=== PATIENT | female | born 1945 | race African-American/Black ===

== ENCOUNTER 2017-03-25 16:42 | Inpatient (IN) | payer MEDICAID ==
[2017-03-25] MEDS ORDERED: MORPHINE SULFATE INJ 2 MG IVP ONE (16:51)
[2017-03-25] MEDS ORDERED: MORPHINE SULFATE INJ 2 MG ONE (16:54)
[2017-03-25 17:02] LABS: BASOPHILS # (AUTO) 0.1 X10^3/uL (0.0-0.1); BASOPHILS % (AUTO) 1.5 % (0.2-1.0); EOSINOPHILS # (AUTO) 0.5 x10^3/uL (0.0-0.2); EOSINOPHILS % (AUTO) 8.2 % (0.9-2.9); HEMATOCRIT 36.7 % (36.0-47.0); HEMOGLOBIN 11.9 g/dL (12.0-16.0); LYMPHOCYTES # (AUTO) 1.8 X10^3/uL (1.3-2.9); LYMPHOCYTES % (AUTO) 33.3 % (21.0-51.0); MEAN CORPUSCULAR HEMOGLOBIN 29.8 pg (27.0-34.0); MEAN CORPUSCULAR HGB CONC 32.4 g/dL (33.0-35.0); MEAN CORPUSCULAR VOLUME 91.8 fL (80.0-100.0); MEAN PLATELET VOLUME 10.1 fL (7.4-11.0); MONOCYTES # (AUTO) 0.2 x10^3/uL (0.3-0.8); MONOCYTES % (AUTO) 4.3 % (0.0-13.0); NEUTROPHILS # (AUTO) 2.9 x10^3/uL (2.2-4.8); NEUTROPHILS % (AUTO) 52.7 % (42.0-75.0); PLATELET COUNT 191 X10^3/uL (150.0-450.0); RED CELL DISTRIBUTION WIDTH 15.8 % (11.6-16.5); WHITE BLOOD COUNT 5.5 X10^3/uL (3.6-10.0)
[2017-03-25 17:18] LABS: CALCIUM 8.6 mg/dL (8.5-10.1); CARBON DIOXIDE 30.4 mmol/L (21-32); CREATININE 1.46 mg/dL (0.55-1.02); TROPONIN I 0.03 ng/mL (0-1.5)
[2017-03-25 17:22] LABS: COR CA(FOR HYPOALB) 9.4 mg/dL (8.5-10.1); TOTAL PROTEIN 7.7 g/dL (6.4-8.2)
[2017-03-25 17:25] LABS: CKMB % 1.3 % (<4); CREATINE KINASE MB 0.8 ng/mL (0-4.0)
[2017-03-25] MEDS ORDERED: PEPCID 20 MG IV PREMIX* 20 MG/50 ML BAG IV ONE ×2 (17:25→18:18)
--- NOTE | 2017-03-25 17:26 | DR.CP ---
HPI - Time Seen Time seen: 17:23 - PCP Primary Care Physician: yoan - HPI Comment HPI Comment: PATIENT ON TUBE FEEDING. SHE WAS GIVEN ORAL CHALLENGE TODAY. MOST OF THAT FEEDING WAS THROWN UP IN ED. - Complaint Chief Complaint Doctor Comments: PATIENT IS NOT ANSWERING QUESTION BUT SHE IS IN OBVIOUS PAIN. HISTORY PER NURSING NOTE. Chief Complaint:: patient was sitting in the [place] in her alecia chair getting her out patient fluids. patient started moaning and yelling and all of a sudden she projectile vomited very forceful. - Reviewed Nurses Notes Review: Yes - Source History Provided: Custodial - Mode of Arrival Mode of Arrival: Ambulatory - Timing Onset of Chief Complaint: 03/25/17 Came on: Suddenly Pain: Present Now - Duration Duration: Constant Duration: Minutes - Location Location of Chest Pain: Chest Chest Pain Radiation Location: None - Context Onset: At rest Cardiac Risk Factors: Family History, Hyperlipidemia, HTN, Diabetes PE Risk Factors: None History of: denies: Aspirin in last 24 hours Prehospital Care: Oxygen, IV, Monitor - Quality Quality: Other (AMS, PT NOT SAYING,) - Severity Severity: Moderate - Modifying Factors Worsens: Nothing Impoves: Nothing - Associated Signs and Symptoms Associated Signs and Symptoms: Shortness of Breath, Abdominal Pain, Nausea/ Vomiting, Other (CHEST PAIN) PMH - PMH Past Medical History: Yes Past Medical History: Anxiety, Coronary Artery Disease, CVA, Dementia, Diabetes , Dyslipidemia, GERD, Hypertension Past Surgical History: Yes Surgical History: Other Unable to Obtain Due To: Altered mental status - Family History History of Family Medical Conditions: Yes Family Medical History: Diabetes Mellitus, [place], Coronary Artery Disease, Hypertension - Social History Does patient currently use any type of tobacco product: No Have you used tobacco products in the last 12 months: No Type of Tobacco Use: None Does any household member use tobacco: No Alcohol Use: None Do you use any recreational Drugs:: No Lives With: Family Lives Where: Assisted Care - infectious screening In the last 2 months have you had wt loss of >10#?: NO Have you had fever, night sweats or hemotysis?: No Have you traveled outside the country in the last 6 months?: No Isolation: Standard ROS - Review of Systems Constitutional: Weakness. negative: Chills, Fever Eyes: negative: Eye Pain, Discharge ENTM: negative: Ear Pain, Nose Discharge, Nose Congestion, Throat Pain Respiratoy: Short of Breath, Wheezing Cardiovascular: Chest Pain. negative: Edema Gastrointestinal/Abdominal: Abdominal Pain, Nausea, Vomiting Genitourinary: No Symptoms Reported Neurological: Weakness Musculoskeletal: Muscle Pain Integumentary: No Symptoms Reported Hematologic/Lymphatic: Easy Bruising Endocrine: negative: Flushing, Increased Thirst, Increased Urine Unable to Obtain Due To: Altered mental status PE - Vitals Vitals: Temperature 98.6 F Pulse Rate [Apical] 80 Pulse Rate [Right Radial] 77 Pulse Rate 59 Respiratory Rate 16 Blood Pressure [Right Calf] 115/58 Blood Pressure [Right Arm] 129/60 Blood Pressure [Left Arm] 126/64 Blood Pressure 127/70 O2 Sat by Pulse Oximetry 100 - General Limitations: No Limitations General Appearance: Alert, In Distress - Head Head Exam: Normal Inspection - Eyes Eye exam: PERRL. negative: Scleral Icterus - ENT ENT Exam: Normal External Ear Exam - Chest Chest Inspection: Symmetric Chest Wall Rise - Respiratory Respiratory Exam: Respiratory Distress Respiratory Exam: Bilateral Wheezing, Bilateral Rhonchi, Upper Wheezing, Upper Rhonchi, Lower Wheezing, Lower Rhonchi - Cardiovascular Cardiovascular Exam: Regular Rate, Normal Rhythm, Normal Heart Sounds Pulse: Radial, Femoral - Abdominal Exam Abdominal Exam: Normal Bowel Sounds, Distention, Tenderness. negative: Guarding , Rebound, Rigidity Abdominal Tenderness: Diffuse, Moderate - Extremities Extremities Exam: Other (RT ELBOW CONTRACTURE.) - Back Back Exam: Paraspinal Tenderness - Neurologic Neurological Exam: Other (SLEEPY) - Psychiatric Psychiatric Exam: Flat Affect - Skin Skin Exam: Warm MDM - Additional Information Additional Information Obtained From: Family - Differential Diagnosis Differential Diagnosis: CHF, Gastritis, Myocardial Infarction, Pericarditis, Pleuritis, Pancreatitis Course - Treatment Treatment: SEE ORDERS. WHILE ED, PATIENT WAS SLEEPING SINCE 2MG MORPHINE. VOMITING IMPROVE WITH ZOFRAN. 2ND SETS OF CARDIAC ENZYMES WERE UNCHANGE AND SO WAS EKG. PATIENT BP STARTED DECREASING. SHE DID NOT REAPOND TO FLUID. LEVOPHED WAS STARTED AND PATIENT WAS ADMITTED TO HOSPITAL. - Reevaluation 1st: Unchanged 2nd: Unchanged 3rd: Worsened - Consultation Consultation Comments: PATIENT DISCUS WITH DR. KINCAID. TO DO 2ND SET OF CARDIAC ENZYME, IF NORMAL AND PATIENT FULLY ALERT, TO SEND HER TO THE RESIDENTIAL.. DISCUSS PATIENT WITH CODI PORTILLO AFTER BP DETERIORATED. HE WILL ADMIT PATIENT. - Education/Counseling Education/Counseling: Family Educated On: Treatment, Diagnosis ROR - Labs Reviewed Laboratory Results Reviewed?: Yes Result Diagrams: 03/26/17 07:18 03/26/17 07:18 Laboratory: WBC 28.7 X10^3/uL (3.6-10.0) H* 03/26/17 07:18 RBC 3.83 X10^6/uL (3.5-5.4) 03/26/17 07:18 Hgb 11.0 g/dL (12.0-16.0) L 03/26/17 07:18 Hct 34.9 % (36.0-47.0) L 03/26/17 07:18 MCV 91.0 fL (80.0-100.0) 03/26/17 07:18 MCH 28.7 pg (27.0-34.0) 03/26/17 07:18 MCHC 31.5 g/dL (33.0-35.0) L 03/26/17 07:18 RDW 16.0 % (11.6-16.5) 03/26/17 07:18 Plt Count 148 X10^3/uL (150.0-450.0) L 03/26/17 07:18 Plt Count Comment Adequate (ADEQUATE) 03/26/17 07:18 MPV 10.2 fL (7.4-11.0) 03/26/17 07:18 Neut % 87.5 % (42.0-75.0) H 03/26/17 07:18 Lymph % 1.6 % (21.0-51.0) L 03/26/17 07:18 Forest % 10.7 % (0.0-13.0) 03/26/17 07:18 Eos % 0.0 % (0.9-2.9) L 03/26/17 07:18 Baso % 0.2 % (0.2-1.0) 03/26/17 07:18 Neut # 25.2 x10^3/uL (2.2-4.8) H 03/26/17 07:18 Lymph # 0.4 X10^3/uL (1.3-2.9) L 03/26/17 07:18 Forest # 3.1 x10^3/uL (0.3-0.8) H 03/26/17 07:18 Eos # 0.0 x10^3/uL (0.0-0.2) 03/26/17 07:18 Baso # 0.1 X10^3/uL (0.0-0.1) 03/26/17 07:18 Absolute Nucleated RBC 0.1 /100WBC 03/26/17 07:18 Total Counted 100 03/26/17 07:18 Neutrophils % (Manual) 59 % (39-76) 03/26/17 07:18 Band Neutrophils % 18 % (0-10) H 03/26/17 07:18 Lymphocytes % (Manual) 9 % (13-43) L 03/26/17 07:18 Monocytes % (Manual) 8 % (4-9) 03/26/17 07:18 Metamyelocytes % 6 03/26/17 07:18 Plt Morphology Comment Normal (NORMAL) 03/26/17 07:18 RBC Morphology Normal (NORMAL) 03/26/17 07:18 INR Target Range - 03/26/17 07:18 INR 1.38 (0.8-1.3) H 03/26/17 07:18 PTT 39.4 SECONDS (22.9-36.5) H 03/26/17 07:18 PTT Comment - 03/26/17 07:18 Sample Site Rfem 03/25/17 22:54 ABG pH 7.310 (7.35-7.45) L 03/25/17 22:54 ABG pCO2 50.0 mmHg (35.0-45.0) H 03/25/17 22:54 ABG pO2 100.0 mmHg (80.0-100.0) 03/25/17 22:54 ABG HCO3 25.2 mmol/L (22-26) 03/25/17 22:54 ABG O2 Saturation 97.0 % (90-100) 03/25/17 22:54 ABG Base Excess -1.6 mmol/L (-2.0-2.0) 03/25/17 22:54 Richard Test N/a 03/25/17 22:54 A-a Gradient 37.0 mmHg 03/25/17 22:54 FiO2 28.000 03/25/17 22:54 Blood Gas Comments Leonila well ae 03/25/17 22:54 Sodium 140 mmol/L (136-145) 03/26/17 07:18 Corrected Sodium TNP 03/26/17 07:18 Potassium 4.4 mmol/L (3.5-5.1) 03/26/17 07:18 Chloride 104 mmol/L (98-107) 03/26/17 07:18 Carbon Dioxide 26.4 mmol/L (21-32) 03/26/17 07:18 BUN 84 mg/dL (7-18) H 03/26/17 07:18 Creatinine 2.27 mg/dL (0.55-1.02) H 03/26/17 07:18 Est GFR (MDRD) Af Amer 27 (>60) L 03/26/17 07:18 Est GFR (MDRD) Non-Af 22 (>60) L 03/26/17 07:18 Glucose 101 mg/dL (65-99) H 03/26/17 07:18 Lactic Acid 2.9 mmol/L (0.4-2.0) H 03/26/17 01:10 Calcium 8.7 mg/dL (8.5-10.1) 03/26/17 07:18 Corrected Calcium 9.8 mg/dL (8.5-10.1) 03/26/17 07:18 Magnesium 1.9 mg/dL (1.7-2.9) 03/26/17 07:18 Total Bilirubin 0.40 mg/dL (0.2-1.0) 03/26/17 07:18 AST 92 Units/L (15-37) H 03/26/17 07:18 ALT 123 Units/L (12-78) H 03/26/17 07:18 Alkaline Phosphatase 108 Units/L (46-116) 03/26/17 07:18 Creatine Kinase 304 Units/L (26-192) H 03/26/17 07:18 CK-MB (CK-2) 4.0 ng/mL (0-4.0) 03/26/17 07:18 CK/CKMB % Calc 1.3 % (<4) 03/26/17 07:18 Troponin I 0.08 ng/mL (0-1.5) 03/26/17 07:18 B-Natriuretic Peptide 718 pg/mL (0-79) H* 03/25/17 16:30 Total Protein 7.1 g/dL (6.4-8.2) 03/26/17 07:18 Albumin 2.6 g/dL (3.4-5.0) L 03/26/17 07:18 Globulin 4.5 g/dL (2.5-4.5) 03/26/17 07:18 Albumin/Globulin Ratio 0.6 Ratio (1.1-2.1) L 03/26/17 07:18 Triglycerides 94 mg/dL (0-150) 03/26/17 07:18 Cholesterol 82 mg/dL (0-200) 03/26/17 07:18 LDL Cholesterol, Calc 15 mg/dL (0-100) 03/26/17 07:18 HDL Cholesterol 48 mg/dL (40-60) 03/26/17 07:18 Cholesterol/HDL Ratio 1.7 (0.0-5.0) 03/26/17 07:18 Amylase 135 Units/L (25-115) H 03/25/17 16:30 Lipase 510 Units/L (73-393) H 03/25/17 16:30 Specimen Type Catherized urine 03/25/17 23:12 Urine Color Yellow (YELLOW) 03/25/17 23:12 Urine Appearance Clear (CLEAR) 03/25/17 23:12 Urine pH 6.5 (5.0 - 8.0) 03/25/17 23:12 Ur Specific Kidder 1.010 (1.000-1.030) 03/25/17 23:12 Urine Protein 3+ (NEGATIVE) 03/25/17 23:12 Urine Glucose (UA) Negative (NEGATIVE) 03/25/17 23:12 Urine Ketones Negative (NEGATIVE) 03/25/17 23:12 Urine Occult Blood Negative (NEGATIVE) 03/25/17 23:12 Urine Nitrite Negative (NEGATIVE) 03/25/17 23:12 Urine Bilirubin Negative (NEGATIVE) 03/25/17 23:12 Urine Urobilinogen Normal (NORMAL) 03/25/17 23:12 Ur Leukocyte Esterase 1+ (NEGATIVE) 03/25/17 23:12 Urine RBC None seen /HPF (NEGATIVE) 03/25/17 23:12 Urine WBC 6-8 /HPF (NEGATIVE) 03/25/17 23:12 Ur Squamous Epith Cells Rare /HPF (NEGATIVE) 03/25/17 23:12 Urine Bacteria 1+ /HPF (NEGATIVE) 03/25/17 23:12 Ur Culture Indicated? Yes/culture set up 03/25/17 23:12 - XRAY XRAY Findings: REPORT NOTED. DISCUSS WITH FAMILY. - EKG Rhythm: NSR (EKG NOTED) - Diagnosis Discharge Problem: Mental status alteration, Abdominal pain, Chest pain, Hypotension, UTI ( urinary tract infection) - Discharge Plan Disposition: 09 ADMITTED INPATIENT Condition: Stable - Follow ups/Referrals - Instructions
--- NOTE | 2017-03-25 18:49 | CT ---
Indication: Pain and vomiting . Exam: CT chest, abdomen, and pelvis without contrast. Technique: Axial spiral images were obtained from lung bases through the pubic symphysis without con trast and reconstructed at 5 mm intervals with coronal and sagittal multiplanar reconstructions. Aut omated dose control was used during the exam. Findings: CT chest: There is a small right pleural effusion along the lung base extending superiorly into the upper chest. The thyroid gland is unremarkable. There is a right Port-A-Cath in place the tip in the distal superior vena cava. There is a left pacemaker in place with the pacing wires in go od position. The aorta and pulmonary arteries are normal caliber. There is no mediastinal mass or ad enopathy. There is volume loss and consolidation along the right lower lobe posteriorly. There is a 4 mm noncalcified nodule along the right lower lobe laterally. There are mild linear densities along the right middle lobe anteriorly . There is motion artifact throughout the exam. Moderate degenerat omar changes are seen throughout the spine. CT of the abdomen and pelvis: The liver and spleen are normal size and density. No focal lesion is s een. The gallbladder has been removed with clips in the gallbladder fossa. There is a gastrostomy tu be along the midline of the upper epigastric region extending into the body of the stomach which octavio ears in good position. The pancreas and adrenals are normal . The bile ducts are normal caliber. The re is cortical scarring and parenchymal thinning throughout both kidneys with no renal stones and no urinary obstruction. There is moderate feces throughout the colon which is most prominent along the rectosigmoid region. There is no bowel obstruction. The bladder is unremarkable and the uterus is a trophic with no adnexal mass or free fluid. The appendix is normal. There is no pericecal inflammati on. There is a mild compression fracture along the superior endplate of L1 with no displaced or retr opulsed fragments. There is moderate degenerative disc space narrowing . Impression: Small right pleural effusion with associated right basilar atelectasis and or infiltrate 4 mm nodule right lung base laterally, recommend short-term followup to assure stability . Right Port-A-Cath and left pacemaker in good position with no mediastinal mass or adenopathy. Gastrostomy tube in good position. Status post cholecystectomy with no acute intra-abdominal abnormality seen. Diffuse constipation and moderate fecal impaction along the rectosigmoid region with no definite bow el obstruction. Perirenal scarring around both kidneys with no hydronephrosis or urinary obstruction . Mild compression fracture of L1 which appears chronic , recommend clinical followup. Reported By:
[2017-03-25 21:35] LABS: CKMB % 2.5 % (<4); CREATINE KINASE MB 1.7 ng/mL (0-4.0); TROPONIN I 0.03 ng/mL (0-1.5)
[2017-03-25] MEDS ORDERED: NS 1000 ML 1,000 ML IV ONE (21:59)
[2017-03-25] MEDS ORDERED: NS 1000 ML 1,000 ML ONE (21:59)
[2017-03-25] MEDS ORDERED: D5W 250 ML IV 250 ML IV ONE (22:48)
[2017-03-25] MEDS ORDERED: LEVOPHED INJ ONE (22:49)
[2017-03-25 22:58] LABS: BLOOD UREA NITROGEN 79 mg/dL (7-18); CALCIUM 8.7 mg/dL (8.5-10.1); CARBON DIOXIDE 24.9 mmol/L (21-32); CHLORIDE 106 mmol/L (98-107); CREATININE 1.84 mg/dL (0.55-1.02); GLUCOSE 108 mg/dL (65-99); SODIUM 141 mmol/L (136-145); eGFR BLACK RACES 35 (>60); eGFR NON BLACK RACES 29 (>60)
[2017-03-25 22:59] LABS: ABG BASE EXCESS -1.6 mmol/L (-2.0-2.0); ABG HCO3 25.2 mmol/L (22-26)
[2017-03-25] MEDS: LEVOPHED INJ 8 MG in D5W 250 ML IV 242 ML IV PRN (23:05)
[2017-03-25 23:48] LABS: BILIRUBIN,URINE NEGATIVE (NEGATIVE); BLOOD/HEMOGLOBIN,URINE NEGATIVE (NEGATIVE); GLUCOSE, URINE NEGATIVE (NEGATIVE); KETONES,URINE NEGATIVE (NEGATIVE); LEUKOCYTE ESTERASE ,URINE 1+ (NEGATIVE); NITRITES,URINE NEGATIVE (NEGATIVE); PH,URINE 6.5 (5.0 - 8.0); PROTEIN,URINE 3+ (NEGATIVE); UROBILINOGEN,URINE NORMAL (NORMAL)
[2017-03-26 00:05] LABS: APPEARANCE,URINE CLEAR (CLEAR); BACTERIA,URINE 1+ /HPF (NEGATIVE); COLOR,URINE YELLOW (YELLOW); RBC,URINE NONE SEEN /HPF (NEGATIVE); SQUAMOUS EPITHELIAL CELL,UR RARE /HPF (NEGATIVE)
--- NOTE | 2017-03-26 00:27 | CT ---
CT head without contrast Indication: Projectile vomiting and altered mental status. Technique: Axial images from the skullbase to the vertex without contrast. Coronal and sagittal refo rmats provided. Comparison: September 05, [address] Findings: There is atrophy and microangiopathy with ex vacuo ventricle and sulcal enlargement, simil ar to the prior. No new acute intracranial hemorrhage, mass or mass effect seen. No extra-axial flui d collection identified. Review of bone windows shows no osseous abnormality. Paranasal sinuses and mastoid air cells are clear. Empty sella type appearance noted. This is unchanged over multiple priors. Old left basal ganglia in farct unchanged. Impression: 1. No acute intracranial hemorrhage. 2. Atrophy, with ex vacuo ventricle sulcal enlargement. Empty sella appearance seen. Intracranial hy pertension not excluded. Reported By:
[2017-03-26] MEDS ORDERED: NS 50 ML IV + SPIKE MINIBAG* 50 ML IV ONE (01:11)
[2017-03-26] MEDS ORDERED: ROCEPHIN VIAL 1 GM ONE (01:12)
[2017-03-26] MEDS: NS 1000 ML 1,000 ML IV SCH ×3 (02:02→21:10)
[2017-03-26] MEDS: ROCEPHIN VIAL 1 GM 1 GM in NS 50 ML IV + SPIKE MINIBAG* 50 ML IV SCH ×2 (02:02→09:21)
[2017-03-26 07:35] LABS: BASOPHILS # (AUTO) 0.1 X10^3/uL (0.0-0.1); BASOPHILS % (AUTO) 0.2 % (0.2-1.0); HEMATOCRIT 34.9 % (36.0-47.0); LYMPHOCYTES # (AUTO) 0.4 X10^3/uL (1.3-2.9); LYMPHOCYTES % (AUTO) 1.6 % (21.0-51.0); MEAN CORPUSCULAR HEMOGLOBIN 28.7 pg (27.0-34.0); MEAN CORPUSCULAR HGB CONC 31.5 g/dL (33.0-35.0); MEAN PLATELET VOLUME 10.2 fL (7.4-11.0); MONOCYTES # (AUTO) 3.1 x10^3/uL (0.3-0.8); MONOCYTES % (AUTO) 10.7 % (0.0-13.0); NEUTROPHILS # (AUTO) 25.2 x10^3/uL (2.2-4.8); NEUTROPHILS % (AUTO) 87.5 % (42.0-75.0); PLATELET COUNT 148 X10^3/uL (150.0-450.0); RED BLOOD COUNT 3.83 X10^6/uL (3.5-5.4)
[2017-03-26 07:43] LABS: WHITE BLOOD COUNT 28.7 X10^3/uL (3.6-10.0)
[2017-03-26 07:48] LABS: BAND NEUTROPHILS % 18 % (0-10); METAMYELOCYTES % 6; PLATELET MORPHOLOGY COMMENT NORMAL (NORMAL)
[2017-03-26 07:53] LABS: ALANINE AMINOTRANSFERASE 123 Units/L (12-78); ALBUMIN 2.6 g/dL (3.4-5.0); ALKALINE PHOSPHATASE 108 Units/L (46-116); ASPARTATE AMINO TRANSFERASE 92 Units/L (15-37); BLOOD UREA NITROGEN 84 mg/dL (7-18); CALCIUM 8.7 mg/dL (8.5-10.1); CARBON DIOXIDE 26.4 mmol/L (21-32); CHLORIDE 104 mmol/L (98-107); CHOL/HDL RATIO 1.7 (0.0-5.0); CHOLESTEROL 82 mg/dL (0-200); CKMB % 1.3 % (<4); COR CA(FOR HYPOALB) 9.8 mg/dL (8.5-10.1); CREATINE KINASE 304 Units/L (26-192); CREATININE 2.27 mg/dL (0.55-1.02); GLUCOSE 101 mg/dL (65-99); HDL CHOLESTEROL 48 mg/dL (40-60); MAGNESIUM 1.9 mg/dL (1.7-2.9); SODIUM 140 mmol/L (136-145); TOTAL PROTEIN 7.1 g/dL (6.4-8.2); TRIGLYCERIDES 94 mg/dL (0-150); TROPONIN I 0.08 ng/mL (0-1.5); eGFR BLACK RACES 27 (>60); eGFR NON BLACK RACES 22 (>60)
[2017-03-26] MEDS: LEVOPHED INJ 8 MG in D5W 250 ML IV 242 ML IV PRN ×2 (09:20→20:16)
[2017-03-26] MEDS ORDERED: CONSULT PHARMACY - ANTIBIOTIC XX SCH (11:00)
[2017-03-26 11:56] LABS: CKMB % 1.3 % (<4); CREATINE KINASE MB 4.8 ng/mL (0-4.0); TROPONIN I 0.09 ng/mL (0-1.5)
--- NOTE | 2017-03-26 11:57 | DR.H&P ---
H&P - History & Physical for Day of: H&P Date: 03/26/17 - Chief Complaint Chief Complaint: VOMITING, HYPOTENSION - Allergies Allergies/Adverse Reactions: Allergies Allergy/AdvReac Type Severity Reaction Status Date / Time Tuberculin Tests Allergy Verified 06/28/16 07:14 - History of Present Illness History of Present Illness: THIS IS A 72 YEAR OLD FEMALE, WHO IS A PATIENT OF OURS. SHE RESIDES AT [facility]. SHE PRESENTS TO THE EMERGENCY ROOM TODAY FOR OUTPATIENT IV FLUIDS THAT SHE RECIEVES THREE TIMES PER WEEK DUE TO CHRONIC RENAL FAILURE, DEHYDRATION, AND HYPERNATREMIA. WHILE IN THE EMERGENCY ROOM, PATIENT HAD PROJECTILE VOMITING ALONG WITH CHEST PAIN AND ABDOMINAL PAIN. PATIENT'S PRIMARY SOURCE OF NUTRITION IS VIA PEG FEEDINGS. PATIENT WAS GIVEN AN ORAL CHALLENGE PRIOR TO ER VISIT AND DID NOT TOLERATE WELL. PATIENT IS NOT ABLE TO VERBALIZE NEEDS; HOWEVER, MOANS IN PAIN. SHE IS NOTED WITH SHORTNESS OF BREATH WITH RESPIRATORY DISTRESS. ON AUSCULTATION, LUNGS ARE NOTED WITH BILATERAL WHEEZING AND RHONCHI THROUGHOUT. LABS, CT'S OBTAINED IN ER. CBC WNL EXCEPT: HGB 11.9. CMP WNL EXCEPT: BUN/CREAT 70/1.46, GFR 37, GLUCOSE 129, AST 78, ALT 120, ALK PHOS 189, ALBUMIN 3.0. BNP 718. LACTIC ACID 2.9. CARDIAC ENZYMES WNL. EKG: JUNCTIONAL RHYTHM, RATE 55. CT OF ABD/PELVIS REPORTS GASTROSTOMY TUBE IN GOOD POSITION; STATUS POST CHOLECYSTECTOMY WITH NO ACUTE INTRA-ABDOMINAL ABNORMALITY; DIFFUSE CONSTIPATION AND MODERATE FECAL IMPACTION ALONG THE RECTOSIGMOID REGION WITH NO DEFINITE BOWEL OBSTRUCTION; PERIRENAL SCARRING AROUND BOTH KIDNEYS WITH NO HYDRONEPHROSIS OR URINARY OBSTRUCTION; MILD COMPRESSION FRACTURE OF L1 WHICH APPEARS CHRONIC. CT OF CHEST REPORTS: SMALL RIGHT PLEURAL EFFUSION WITH ASSOCIATED RIGHT BASILAR ATELECTASIS AND OR INFILTRATE; 4 MM NODULE RIGHT LUNG BASE LATERALLY. PATIENT RECEIVED MORPHINE 2MG IV, WITH DECREASED MOANING IN RESPONSE TO PAIN. HYPOTENSION WAS THEN NOTED AND AN ATTEMPT WAS MADE TO CORRECT WITH IV FLUIDS WITH NO IMPROVEMENT. BLOOD PRESSURE WAS 78/50, PULSE 65. A LEVOPHED DRIP WAS STARTED AND BLOOD PRESSURE IMPROVED TO 110/69, PULSE 75. BRAIN CT REPORTS NO ACUTE INTRACRANIAL HEMORRHAGE; ATROPHY WITH EX VACUO VENTRICLE SULCAL ENLARGEMENT; EMPTY SELLA. BLOOD AND URINE CULTURES OBTAINED. PATIENT WAS ADMITTED TO ICU FOR FURTHER TREATMENT. SHE CONTINUES ON LEVOPHED DRIP THIS MORNING AND BLOOD PRESSURE IS 109/47, PULSE 66. SHE IS ON NASAL CANNULA WITH NO RESPIRATORY DISTRESS OR MOANING. O2 SATURATION IS 100%. WBC IS 28.7 THIS MORNING. WE WILL DISCONTINUE ROCEPHIN AND START FORTAZ AND VANCOMYCIN IV. WE WILL OBTAIN SPUTUM CULTURE AND CONTINUE TO MONITOR. WE WILL FOLLOW UP IN AM WITH LABS AND CHEST XRAY. - Past Medical History Past Medical History: Anxiety, Coronary Artery Disease, CVA, Dementia, Diabetes , Dyslipidemia, GERD, Hypertension Additional Medical History: Glaucoma, Constipation, Urinary Tract Infections, Muscle Weakness, Constipation, frequent UTI's - Past Surgical History Surgical History: Other Additional Surgical History: Pacemaker/defibrillator left chest wall, Portacath right chest wall, Peg Tube - Family History Family Medical History: Diabetes Mellitus, [place], Coronary Artery Disease, Hypertension - Social History Does patient currently use any type of tobacco product: No Have you used tobacco products in the last 12 months: No Type of Tobacco Use: None Does any household member use tobacco: No Alcohol Use: None Drug Use: None - Medications Home Medications: Artificial Tears (Ophth) [ARTIFICIAL TEARS (ophth) drops *] 1 drop EACHEYE BID 05/30/16 Atorvastatin Calcium [Lipitor] 1 tab PEG DAILY 05/30/16 Brimonidine Tartrate [ALPHAGAN P 0.15% (ophth) Soln *] 1 drop LEFTEYE TID 05/10 Citalopram 20 mg Tab [CELEXA 20 MG *] 1 tab PEG DAILY 05/30/16 Dorzolamide HCl-Timolol Maleat [Cosopt 22.3-6.8 mg/ml] 1 drop LEFTEYE BID 05/10 Gabapentin [NEURONTIN CAP 400 MG *] 2 tab PEG DAILY 05/30/16 Latanoprost 0.005 % (Ophth) [XALATAN (OPHTH) DROPS 0.005 % *] 1 drop LEFTEYE HS 05/30/16 Clopidogrel Bisulfate [PLAVIX TAB 75 MG *] 1 tab PEG DAILY 06/28/16 Allopurinol [ZYLOPRIM tab 100 mg *] 1 tab PEG DAILY 07/26/16 Famotidine [PEPCID TAB 20 MG *] 20 mg PEG BID 03/26/17 - Review of Systems Constitutional: Weakness Eyes: No Symptoms Reported. denies: Pain, Vision Change, Conjunctivae Inflammation, Eyelid Inflammation, Redness ENT: No Symptoms Reported. denies: Ear Pain, Ear Discharge, Nose Pain, Nose Discharge, Nose Congestion, Mouth Pain, Mouth Swelling, Throat Pain, Throat Swelling Respiratory: Shortness of Breath, SOB with Excertion, Wheezing Cardiovascular: Chest Pain. denies: Palpitations, Orthopnea, Paroxysmal Noc. Dyspnea, Edema, Light Headedness Gastrointestinal: Nausea, Vomiting, Abdominal Pain. denies: Diarrhea, Constipation, Melena, Hematochezia Genitourinary: Frequency, Incontinence. denies: Hematuria Musculoskeletal: Other (Generalized Muscle Pain) Skin: No Symptoms Reported. denies: Rash, Lesions, Jaundice, Bruising, Wound, Ecchymosis Neurological: No Symptoms Reported - Physical Exam Vital Signs: Temperature 98.2 F Pulse Rate [Apical] 66 Respiratory Rate 18 Blood Pressure [Right Arm] 109/47 O2 Sat by Pulse Oximetry 100 Oriented: Unable to test (Aphasic Due to Prior CVA) Eyes: Normal. negative: Discharge, Pain, Redness, Photophobia Ear: Normal. negative: Swelling, Ecchymosis, Hemotypanum, Abrasion, Laceration Nose: Normal. negative: Injected, Discharge, Blood Throat: Dry. negative: Tonsillar Hypertrophy, Exudate Respiratory: Rhonchi Throughout, Wheezes Throughout Cardiovascular: Normal. negative: Murmur, Edema : Frequency, Discharge. negative: Hematuria, Bleeding, Auscultation: Bowel Sounds: Decreased. negative: Bruit Palpation: Normal. negative: Spleen Enlarged, Liver Enlarged, Mass Pulsatile Tenderness: Diffuse, Severe. negative: Rebound, Guarding, Rigidity Skin: Decreased Turgur. negative: Diaphoresis, Wound, Bruising, Ecchymosis Musculoskeletal: Instability (Non-ambulatory) Mood Description: Calm, Withdrawn Speech Pattern: Aphasic - Assessment/Plan (1) Hypotension Qualifiers: Hypotension type: other hypotension type Trimester: T Qualified Code(s): I95.89 - Other hypotension Status: Acute Plan: ADMIT PATIENT TO ICU, CONTINUE LEVOPHED DRIP, MONITOR ON TELEMETRY, SERIAL CARDIAC ENZYMES AND EKG'S, MONITOR VITAL SIGNS, SUPPLEMENTAL OXYGEN, MONITOR BLOOD PRESSURE EVERY HOUR. (2) Septicemia Status: Suspected Plan: START VANCOMYCIN IV, FORTAZ IV, IV FLUIDS, MONITOR VITAL SIGNS, AWAIT BLOOD CULTURE C&S. (3) Pneumonia Qualifiers: Pneumonia type: due to unspecified organism Aspiration pneumonia type: A Laterality: right Lung location: lower lobe of lung Qualified Code(s): J18.1 - Lobar pneumonia, unspecified organism Status: Acute Plan: START PNEUMONIA PROTOCOL: IV VANCOMYCIN, IV FORTAZ, AGGRESSIVE NEB TREATMENTS, INCENTIVE SPIROMETER, SUPPLEMENTAL OXYGEN, ROBITUSSIN, MONITOR LABS AND CHEST XRAY. (4) Chest pain Qualifiers: Chest pain type: precordial pain Ischemic chest pain type: I Qualified Code(s): R07.2 - Precordial pain Status: Acute Plan: CONTINUE LEVOPHED DRIP, MONITOR ON TELEMETRY, SERIAL CARDIAC ENZYMES AND EKG'S, MONITOR VITAL SIGNS, SUPPLEMENTAL OXYGEN. (5) Abdominal pain Qualifiers: Abdominal location: generalized Qualified Code(s): R10.84 - Generalized abdominal pain Status: Acute Plan: START IV FLUIDS, PEPCID, PROTONIX, MONITOR. (6) Mental status alteration Qualifiers: Altered mental status type: disorientation Coma depth: C Coma timing: C Qualified Code(s): R41.0 - Disorientation, unspecified Status: Acute Plan: CONTINUE TO MONITOR. (7) UTI (urinary tract infection) Qualifiers: Urinary tract infection type: acute cystitis Hematuria presence: without hematuria Indwelling urinary catheter type: I Encounter type: E Qualified Code(s): N30.00 - Acute cystitis without hematuria Status: Acute Plan: START FORTAZ, AWAIT URINE CULTURE, MONITOR. (8) CAD (coronary artery disease) Qualifiers: Coronary Disease-Associated Artery/Lesion type: [place] artery [place] vs. transplanted heart: [place] heart Associated angina: without angina Qualified Code(s): I25.10 - Atherosclerotic heart disease of [place] coronary artery without angina pectoris Status: Chronic (9) CHF (congestive heart failure) Qualifiers: Congestive heart failure type: C Congestive heart failure chronicity: acute on chronic Status: Chronic (10) Chronic renal failure Qualifiers: Chronic kidney disease stage: stage 4 (severe) Qualified Code(s): N18.4 - Chronic kidney disease, stage 4 (severe) Status: Chronic (11) Constipation by delayed colonic transit Status: Chronic (12) Dementia Qualifiers: Dementia type: vascular dementia Alzheimer's disease onset: A Dementia behavioral disturbance: without behavioral disturbance Qualified Code(s): F01.50 - Vascular dementia without behavioral disturbance Status: Chronic (13) Depression Qualifiers: Depression Type: major depressive disorder Major depression recurrence: recurrent Active/Remission status: currently active Major depression episode severity: moderate Psychotic features: P Trimester: T Qualified Code(s): F33.1 - Major depressive disorder, recurrent, moderate Status: Chronic (14) Diabetes mellitus, type 2 Qualifiers: Diabetes mellitus complication status: with kidney complications Diabetes mellitus complication detail: with chronic kidney disease Diabetic retinopathy severity: D Proliferative retinopathy type: P Diabetes mellitus macular edema: D Diabetes mellitus care home insulin use: with applications support lead use Laterality: L Chronic kidney disease stage: stage 4 (severe) Qualified Code(s): E11.22 - Type 2 diabetes mellitus with diabetic chronic kidney disease Status: Chronic (15) Dysphagia as late effect of cerebrovascular accident (CVA) Status: Chronic (16) Essential hypertension Status: Chronic (17) GERD (gastroesophageal reflux disease) Qualifiers: Esophagitis presence: esophagitis presence not specified Qualified Code(s) : K21.9 - Gastro-esophageal reflux disease without esophagitis Status: Chronic (18) History of CVA (cerebrovascular accident) Status: Chronic (19) Hyperlipidemia Qualifiers: Hyperlipidemia type: mixed hyperlipidemia Qualified Code(s): E78.2 - Mixed hyperlipidemia Status: Chronic (20) Pacemaker Status: Chronic (21) S/P percutaneous endoscopic gastrostomy (PEG) tube placement Status: Acute
[2017-03-26] MEDS: FORTAZ or TAZICEF INJ 1 GM in NS 50 ML IV + SPIKE MINIBAG* 50 ML IV SCH (12:07)
[2017-03-26] MEDS: VANCOMYCIN 1 GM PREMIX (ADDVANTAGE) 250 ML IV SCH (12:53)
[2017-03-26] MEDS: ROBITUSSIN DM PEG SCH ×3 (13:00→21:07)
[2017-03-26] MEDS: PROTONIX INJ 40 MG VIAL IVP SCH (13:01)
[2017-03-26] MEDS: PLAVIX PEG SCH (13:01)
[2017-03-26] MEDS: CELEXA PEG SCH (13:01)
[2017-03-26] MEDS: PEPCID 20 MG IV PREMIX* 20 MG/50 ML BAG IV SCH ×2 (13:04→21:08)
[2017-03-26] MEDS: LIPITOR TAB 20 MG PEG SCH (13:04)
[2017-03-26 15:31] LABS: BASOPHILS # (AUTO) 0.1 X10^3/uL (0.0-0.1); BASOPHILS % (AUTO) 0.4 % (0.2-1.0); EOSINOPHILS # (AUTO) 5.4 x10^3/uL (0.0-0.2); EOSINOPHILS % (AUTO) 15.7 % (0.9-2.9); HEMATOCRIT 31.9 % (36.0-47.0); LYMPHOCYTES % (AUTO) 2.9 % (21.0-51.0); MEAN CORPUSCULAR HEMOGLOBIN 28.9 pg (27.0-34.0); MEAN CORPUSCULAR HGB CONC 31.2 g/dL (33.0-35.0); MEAN CORPUSCULAR VOLUME 92.5 fL (80.0-100.0); MEAN PLATELET VOLUME 10.2 fL (7.4-11.0); MONOCYTES # (AUTO) 2.9 x10^3/uL (0.3-0.8); MONOCYTES % (AUTO) 8.6 % (0.0-13.0); NEUTROPHILS # (AUTO) 24.8 x10^3/uL (2.2-4.8); NEUTROPHILS % (AUTO) 72.4 % (42.0-75.0); PLATELET COUNT 123 X10^3/uL (150.0-450.0); RED BLOOD COUNT 3.45 X10^6/uL (3.5-5.4); RED CELL DISTRIBUTION WIDTH 16.2 % (11.6-16.5)
[2017-03-26 15:36] LABS: WHITE BLOOD COUNT 34.3 X10^3/uL (3.6-10.0)
[2017-03-26 15:58] LABS: PLATELET MORPHOLOGY COMMENT NORMAL (NORMAL)
[2017-03-26] MEDS: ALPHAGAN P 0.15% OPHTH SOLN LEFTEYE SCH ×2 (16:00→21:08)
[2017-03-26] MEDS: DUONEB 0.5 MG/3 MG NEB SCH ×2 (17:19→20:50)
[2017-03-26] MEDS: ARTIFICIAL TEARS DROPS EACHEYE SCH (21:21)
[2017-03-26] MEDS: COSOPT OPTH LEFTEYE SCH (21:21)
[2017-03-26] MEDS: XALATAN LEFTEYE SCH (21:25)
[2017-03-27] MEDS: DUONEB 0.5 MG/3 MG NEB SCH ×6 (01:27→20:41)
[2017-03-27] MEDS: NS 1000 ML 1,000 ML IV SCH ×3 (03:47→23:42)
[2017-03-27 05:33] LABS: ALANINE AMINOTRANSFERASE 90 Units/L (12-78); ALBUMIN 2.3 g/dL (3.4-5.0); ALKALINE PHOSPHATASE 97 Units/L (46-116); ASPARTATE AMINO TRANSFERASE 70 Units/L (15-37); BLOOD UREA NITROGEN 86 mg/dL (7-18); CALCIUM 8.1 mg/dL (8.5-10.1); CHLORIDE 105 mmol/L (98-107); COR CA(FOR HYPOALB) 9.5 mg/dL (8.5-10.1); CREATININE 2.75 mg/dL (0.55-1.02); GLUCOSE 102 mg/dL (65-99); SODIUM 140 mmol/L (136-145); TOTAL PROTEIN 6.8 g/dL (6.4-8.2); eGFR BLACK RACES 22 (>60); eGFR NON BLACK RACES 18 (>60)
[2017-03-27 06:14] LABS: BASOPHILS # (AUTO) 0.1 X10^3/uL (0.0-0.1); MEAN CORPUSCULAR HEMOGLOBIN 29.5 pg (27.0-34.0); MEAN CORPUSCULAR HGB CONC 31.5 g/dL (33.0-35.0); MONOCYTES # (AUTO) 3.1 x10^3/uL (0.3-0.8)
[2017-03-27 06:22] LABS: BASOPHILS % (AUTO) 0.3 % (0.2-1.0); EOSINOPHILS # (AUTO) 2.8 x10^3/uL (0.0-0.2); EOSINOPHILS % (AUTO) 10.4 % (0.9-2.9); HEMATOCRIT 30.1 % (36.0-47.0); HEMOGLOBIN 9.5 g/dL (12.0-16.0); LYMPHOCYTES # (AUTO) 1.4 X10^3/uL (1.3-2.9); LYMPHOCYTES % (AUTO) 5.3 % (21.0-51.0); MEAN CORPUSCULAR VOLUME 93.4 fL (80.0-100.0); MEAN PLATELET VOLUME 10.4 fL (7.4-11.0); MONOCYTES % (AUTO) 11.7 % (0.0-13.0); NEUTROPHILS # (AUTO) 19.5 x10^3/uL (2.2-4.8); NEUTROPHILS % (AUTO) 72.3 % (42.0-75.0); PLATELET COUNT 121 X10^3/uL (150.0-450.0); RED BLOOD COUNT 3.22 X10^6/uL (3.5-5.4); RED CELL DISTRIBUTION WIDTH 15.9 % (11.6-16.5)
[2017-03-27] MEDS: ALPHAGAN P 0.15% OPHTH SOLN LEFTEYE SCH ×3 (06:24→22:00)
[2017-03-27 06:27] LABS: WHITE BLOOD COUNT 26.9 X10^3/uL (3.6-10.0)
[2017-03-27 06:58] LABS: BAND NEUTROPHILS % 18 % (0-10); METAMYELOCYTES % 5; PLATELET MORPHOLOGY COMMENT NORMAL (NORMAL)
--- NOTE | 2017-03-27 07:14 | RAD ---
AP Chest Indication: Hypotension, chest pain Comparison: 09/28/2016 Findings: Stable positioning of right chest wall MediPort and left chest wall pacemaker. The trachea is midline. The cardiac silhouette is borderline enlarged. The lungs are clear without focal infiltrate or effusion. The bony thorax is unremarkable. IMPRESSION: 1. Borderline cardiomegaly without acute airspace disease or CHF. Reported By:
[2017-03-27] MEDS: LEVOPHED INJ 8 MG in D5W 250 ML IV 242 ML IV PRN ×2 (07:36→22:00)
[2017-03-27] MEDS: ALBUMIN HUMAN 25%- 100ML 100 ML IV SCH (09:48)
[2017-03-27] MEDS: ROBITUSSIN DM PEG SCH ×4 (09:49→22:00)
[2017-03-27] MEDS: PEPCID 20 MG IV PREMIX* 20 MG/50 ML BAG IV SCH (09:49)
[2017-03-27] MEDS: VANCOMYCIN 1 GM PREMIX (ADDVANTAGE) 250 ML IV SCH (09:49)
[2017-03-27] MEDS: FORTAZ or TAZICEF INJ 1 GM in NS 50 ML IV + SPIKE MINIBAG* 50 ML IV SCH (09:49)
[2017-03-27] MEDS: ARTIFICIAL TEARS DROPS EACHEYE SCH ×2 (09:50→22:00)
[2017-03-27] MEDS: PLAVIX PEG SCH (09:50)
[2017-03-27] MEDS: LIPITOR TAB 20 MG PEG SCH (09:50)
[2017-03-27] MEDS: CELEXA PEG SCH (09:50)
[2017-03-27] MEDS: PROTONIX INJ 40 MG VIAL IVP SCH (09:50)
[2017-03-27] MEDS: COSOPT OPTH LEFTEYE SCH ×2 (09:51→22:00)
--- NOTE | 2017-03-27 15:28 | PCM.PROG ---
Progress Note - Progress Note for Day of Date: 03/27/17 - Subjective Subjective: PATIENT IS MORE RESPONSIVE THIS MORNING. PATIENT IS AWAKE AND ALERT UPON ROUNDS. PATIENT CONTINUES ON PNEUMONIA PROTOCOL WITH IV ANTIBIOTICS AND AGGRESSIVE NEB TREATMENTS. PATIENT WAS PLACED ON A LEVOPHED DRIP YESTERDAY DUE TO HYPOTENSION. BLOOD PRESSURE THIS MORNING IS 120/48, PULSE 73. ON AUSCULTATION, LUNGS ARE NOTED WITH SCATTERED WHEEZING THROUGHOUT. CBC WNL EXCEPT: WBC IMPROVED FROM 34.3 TO 26.9, H/H 9.5/30.1, PLT COUNT 121. CMP WNL EXCEPT: BUN/CREAT 86/2.75, GFR 18, GLUCOSE 102, CALCIUM 8.1, AST 70, ALT 90, ALBUMIN 2.3. CRP 205.10. WE WILL START ALBUMIN IV DAILY, ATTEMPT TO WEAN LEVOPHED DRIP, AND CONTINUE AGGRESSIVE PULMONARY TOILETING. WE WILL FOLLOW UP IN AM WITH LABS AND CHEST XRAY. - Past Medical Family Social History Past Med/Fam/Surg Hx: No changes since H&P Allergies: Allergies Tuberculin Tests Allergy (Verified 06/28/16 07:14) - Review of Systems ROS: No change since H&P - Vital Signs and I&O's Vital Signs: Temperature 99.1 F Pulse Rate [Apical] 76 Pulse Rate 77 Respiratory Rate 15 Blood Pressure [Right Arm] 120/47 Blood Pressure [Left Arm] 90/51 O2 Sat by Pulse Oximetry 100 Intake and Output: Intake & Output 03/25/17 03/26/17 03/27/17 03/28/17 11:59 11:59 11:59 11:59 Intake Total 663 3734 40 Output Total 250 325 Balance 413 3409 40 - Physical Exam Oriented: Person Eyes: Normal. negative: Discharge, Pain, Redness, Photophobia Ear: Normal. negative: Swelling, Ecchymosis, Hemotypanum, Abrasion, Laceration Nose: Normal. negative: Injected, Discharge, Blood Throat: Dry. negative: Tonsillar Hypertrophy, Exudate Respiratory: Generalized, Wheezes Cardiovascular: Normal. negative: Murmur, Edema : Frequency, Discharge. negative: Hematuria, Bleeding, Auscultation: Bowel Sounds: Decreased. negative: Bruit Palpation: Normal. negative: Spleen Enlarged, Liver Enlarged, Mass Pulsatile Tenderness: Diffuse, Mild. negative: Rebound, Guarding, Rigidity Skin: Decreased Turgur. negative: Diaphoresis, Wound, Bruising, Ecchymosis Musculoskeletal: Instability (Non-ambulatory) Psychiatric: Normal Mood Description: Calm, Appropriate Affect: Normal Speech Pattern: Clear, Appropriate - Laboratory and Diagnostics Result Diagrams: 03/27/17 03:30 03/27/17 03:30 Labs: 03/26/17 17:52 Sputum - Expectorated Sputum Sputum Culture - Preliminary 03/26/17 17:52 Sputum - Expectorated Sputum - Final Laboratory WBC 26.9 X10^3/uL (3.6-10.0) H* 03/27/17 03:30 RBC 3.22 X10^6/uL (3.5-5.4) L 03/27/17 03:30 Hgb 9.5 g/dL (12.0-16.0) L 03/27/17 03:30 Hct 30.1 % (36.0-47.0) L 03/27/17 03:30 MCV 93.4 fL (80.0-100.0) 03/27/17 03:30 MCH 29.5 pg (27.0-34.0) 03/27/17 03:30 MCHC 31.5 g/dL (33.0-35.0) L 03/27/17 03:30 RDW 15.9 % (11.6-16.5) 03/27/17 03:30 Plt Count 121 X10^3/uL (150.0-450.0) L 03/27/17 03:30 Plt Count Comment Decreased (ADEQUATE) A 03/27/17 03:30 MPV 10.4 fL (7.4-11.0) 03/27/17 03:30 Neut % 72.3 % (42.0-75.0) 03/27/17 03:30 Lymph % 5.3 % (21.0-51.0) L 03/27/17 03:30 [place] % 11.7 % (0.0-13.0) 03/27/17 03:30 Eos % 10.4 % (0.9-2.9) H 03/27/17 03:30 Baso % 0.3 % (0.2-1.0) 03/27/17 03:30 Neut # 19.5 x10^3/uL (2.2-4.8) H 03/27/17 03:30 Lymph # 1.4 X10^3/uL (1.3-2.9) 03/27/17 03:30 [place] # 3.1 x10^3/uL (0.3-0.8) H 03/27/17 03:30 Eos # 2.8 x10^3/uL (0.0-0.2) H 03/27/17 03:30 Baso # 0.1 X10^3/uL (0.0-0.1) 03/27/17 03:30 Absolute Nucleated RBC 0.1 /100WBC 03/27/17 03:30 Total Counted 100 03/27/17 03:30 Neutrophils % (Manual) 54 % (39-76) 03/27/17 03:30 Band Neutrophils % 18 % (0-10) H 03/27/17 03:30 Lymphocytes % (Manual) 10 % (13-43) L 03/27/17 03:30 Monocytes % (Manual) 9 % (4-9) 03/27/17 03:30 Eosinophils % (Manual) 4 % (0-6) 03/27/17 03:30 Metamyelocytes % 5 03/27/17 03:30 Plt Morphology Comment Normal (NORMAL) 03/27/17 03:30 RBC Morphology Normal (NORMAL) 03/27/17 03:30 INR Target Range - 03/26/17 07:18 INR 1.38 (0.8-1.3) H 03/26/17 07:18 PTT 28.5 SECONDS (22.9-36.5) 03/26/17 15:00 PTT Comment - 03/26/17 15:00 Sample Site Rfem 03/25/17 22:54 ABG pH 7.310 (7.35-7.45) L 03/25/17 22:54 ABG pCO2 50.0 mmHg (35.0-45.0) H 03/25/17 22:54 ABG pO2 100.0 mmHg (80.0-100.0) 03/25/17 22:54 ABG HCO3 25.2 mmol/L (22-26) 03/25/17 22:54 ABG O2 Saturation 97.0 % (90-100) 03/25/17 22:54 ABG Base Excess -1.6 mmol/L (-2.0-2.0) 03/25/17 22:54 Richard Test N/a 03/25/17 22:54 A-a Gradient 37.0 mmHg 03/25/17 22:54 FiO2 28.000 03/25/17 22:54 Blood Gas Comments Leonila well ae 03/25/17 22:54 Sodium 140 mmol/L (136-145) 03/27/17 03:30 Corrected Sodium TNP 03/27/17 03:30 Potassium 4.2 mmol/L (3.5-5.1) 03/27/17 03:30 Chloride 105 mmol/L (98-107) 03/27/17 03:30 Carbon Dioxide 24.0 mmol/L (21-32) 03/27/17 03:30 BUN 86 mg/dL (7-18) H 03/27/17 03:30 Creatinine 2.75 mg/dL (0.55-1.02) H 03/27/17 03:30 Est GFR (MDRD) Af Amer 22 (>60) L 03/27/17 03:30 Est GFR (MDRD) Non-Af 18 (>60) L 03/27/17 03:30 Glucose 102 mg/dL (65-99) H 03/27/17 03:30 Lactic Acid 2.9 mmol/L (0.4-2.0) H 03/26/17 01:10 Calcium 8.1 mg/dL (8.5-10.1) L 03/27/17 03:30 Corrected Calcium 9.5 mg/dL (8.5-10.1) 03/27/17 03:30 Magnesium 1.9 mg/dL (1.7-2.9) 03/26/17 07:18 Total Bilirubin 0.40 mg/dL (0.2-1.0) 03/27/17 03:30 AST 70 Units/L (15-37) H 03/27/17 03:30 ALT 90 Units/L (12-78) H 03/27/17 03:30 Alkaline Phosphatase 97 Units/L (46-116) 03/27/17 03:30 Creatine Kinase 371 Units/L (26-192) H 03/26/17 10:10 CK-MB (CK-2) 4.8 ng/mL (0-4.0) H* 03/26/17 10:10 CK/CKMB % Calc 1.3 % (<4) 03/26/17 10:10 Troponin I 0.09 ng/mL (0-1.5) 03/26/17 10:10 C-Reactive Protein 205.10 mg/L (0-3.0) H 03/27/17 03:30 B-Natriuretic Peptide 718 pg/mL (0-79) H* 03/25/17 16:30 Total Protein 6.8 g/dL (6.4-8.2) 03/27/17 03:30 Albumin 2.3 g/dL (3.4-5.0) L 03/27/17 03:30 Globulin 4.5 g/dL (2.5-4.5) 03/27/17 03:30 Albumin/Globulin Ratio 0.5 Ratio (1.1-2.1) L 03/27/17 03:30 Triglycerides 94 mg/dL (0-150) 03/26/17 07:18 Cholesterol 82 mg/dL (0-200) 03/26/17 07:18 LDL Cholesterol, Calc 15 mg/dL (0-100) 03/26/17 07:18 HDL Cholesterol 48 mg/dL (40-60) 03/26/17 07:18 Cholesterol/HDL Ratio 1.7 (0.0-5.0) 03/26/17 07:18 Amylase 135 Units/L (25-115) H 03/25/17 16:30 Lipase 510 Units/L (73-393) H 03/25/17 16:30 Specimen Type Catherized urine 03/25/17 23:12 Urine Color Yellow (YELLOW) 03/25/17 23:12 Urine Appearance Clear (CLEAR) 03/25/17 23:12 Urine pH 6.5 (5.0 - 8.0) 03/25/17 23:12 Ur Specific [place] 1.010 (1.000-1.030) 03/25/17 23:12 Urine Protein 3+ (NEGATIVE) 03/25/17 23:12 Urine Glucose (UA) Negative (NEGATIVE) 03/25/17 23:12 Urine Ketones Negative (NEGATIVE) 03/25/17 23:12 Urine Occult Blood Negative (NEGATIVE) 03/25/17 23:12 Urine Nitrite Negative (NEGATIVE) 03/25/17 23:12 Urine Bilirubin Negative (NEGATIVE) 03/25/17 23:12 Urine Urobilinogen Normal (NORMAL) 03/25/17 23:12 Ur Leukocyte Esterase 1+ (NEGATIVE) 03/25/17 23:12 Urine RBC None seen /HPF (NEGATIVE) 03/25/17 23:12 Urine WBC 6-8 /HPF (NEGATIVE) 03/25/17 23:12 Ur Squamous Epith Cells Rare /HPF (NEGATIVE) 03/25/17 23:12 Urine Bacteria 1+ /HPF (NEGATIVE) 03/25/17 23:12 Ur Culture Indicated? Yes/culture set up 03/25/17 23:12 - Plan (1) Septicemia Status: Suspected Plan: CONTINUE VANCOMYCIN IV, FORTAZ IV, IV FLUIDS, MONITOR VITAL SIGNS, AWAIT BLOOD CULTURE C&S. (2) Pneumonia Status: Acute Qualifiers: Pneumonia type: due to unspecified organism Aspiration pneumonia type: A Laterality: right Lung location: lower lobe of lung Qualified Code(s): J18.1 - Lobar pneumonia, unspecified organism Plan: CONTINUE PNEUMONIA PROTOCOL: IV VANCOMYCIN, IV FORTAZ, AGGRESSIVE NEB TREATMENTS, INCENTIVE SPIROMETER, SUPPLEMENTAL OXYGEN, ROBITUSSIN, MONITOR LABS AND CHEST XRAY. (3) Hypotension Status: Acute Qualifiers: Hypotension type: other hypotension type Trimester: T Qualified Code(s): I95.89 - Other hypotension Plan: WEAN LEVOPHED DRIP, MONITOR ON DECK SUPERVISOR VITAL SIGNS, SUPPLEMENTAL OXYGEN, MONITOR BLOOD PRESSURE EVERY HOUR. (4) Chest pain Status: Acute Qualifiers: Chest pain type: precordial pain Ischemic chest pain type: I Qualified Code(s): R07.2 - Precordial pain Plan: CONTINUE LEVOPHED DRIP, MONITOR ON TELEMETRY, SERIAL CARDIAC ENZYMES AND EKG'S, MONITOR VITAL SIGNS, SUPPLEMENTAL OXYGEN. (5) Abdominal pain Status: Acute Qualifiers: Abdominal location: generalized Qualified Code(s): R10.84 - Generalized abdominal pain Plan: START IV FLUIDS, PEPCID, PROTONIX, MONITOR. (6) Mental status alteration Status: Acute Qualifiers: Altered mental status type: disorientation Coma depth: C Coma timing: C Qualified Code(s): R41.0 - Disorientation, unspecified Plan: CONTINUE TO MONITOR. (7) UTI (urinary tract infection) Status: Acute Qualifiers: Urinary tract infection type: acute cystitis Hematuria presence: without hematuria Indwelling urinary catheter type: I Encounter type: E Qualified Code(s): N30.00 - Acute cystitis without hematuria Plan: START FORTAZ, AWAIT URINE CULTURE, MONITOR. (8) CAD (coronary artery disease) Status: Chronic Qualifiers: Coronary Disease-Associated Artery/Lesion type: [place] artery [place] vs. 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 (12) Dementia Status: Chronic Qualifiers: Dementia type: vascular dementia Alzheimer's disease onset: A Dementia behavioral disturbance: without behavioral disturbance Qualified Code(s): F01.50 - Vascular dementia without behavioral disturbance (13) Depression Status: Chronic Qualifiers: Depression Type: major depressive disorder Major depression recurrence: recurrent Active/Remission status: currently active Major depression episode severity: moderate Psychotic features: P Trimester: T Qualified Code(s): F33.1 - Major depressive disorder, recurrent, moderate (14) Diabetes mellitus, type 2 Status: Chronic Qualifiers: Diabetes mellitus complication status: with kidney complications Diabetes mellitus complication detail: with chronic kidney disease Diabetic retinopathy severity: D Proliferative retinopathy type: P Diabetes mellitus macular edema: D Diabetes mellitus skilled nursing insulin use: with petroleum terminal plant operator use Laterality: L Chronic kidney disease stage: stage 4 (severe) Qualified Code(s): E11.22 - Type 2 diabetes mellitus with diabetic chronic kidney disease (15) Dysphagia as late effect of cerebrovascular accident (CVA) Status: Chronic (16) Essential hypertension Status: Chronic (17) GERD (gastroesophageal reflux disease) Status: Chronic Qualifiers: Esophagitis presence: esophagitis presence not specified Qualified Code(s) : K21.9 - Gastro-esophageal reflux disease without esophagitis (18) History of CVA (cerebrovascular accident) Status: Chronic (19) Hyperlipidemia Status: Chronic Qualifiers: Hyperlipidemia type: mixed hyperlipidemia Qualified Code(s): E78.2 - Mixed hyperlipidemia (20) Pacemaker Status: Chronic (21) S/P percutaneous endoscopic gastrostomy (PEG) tube placement Status: Acute
[2017-03-27] MEDS: XALATAN LEFTEYE SCH (22:00)
[2017-03-28] MEDS: DUONEB 0.5 MG/3 MG NEB SCH ×6 (00:10→21:18)
[2017-03-28 05:14] LABS: ALANINE AMINOTRANSFERASE 63 Units/L (12-78); ALBUMIN 2.5 g/dL (3.4-5.0); ALKALINE PHOSPHATASE 81 Units/L (46-116); ASPARTATE AMINO TRANSFERASE 42 Units/L (15-37); BLOOD UREA NITROGEN 90 mg/dL (7-18); CALCIUM 8.3 mg/dL (8.5-10.1); CARBON DIOXIDE 25.4 mmol/L (21-32); CHLORIDE 107 mmol/L (98-107); COR CA(FOR HYPOALB) 9.5 mg/dL (8.5-10.1); CREATININE 2.73 mg/dL (0.55-1.02); GLUCOSE 102 mg/dL (65-99); SODIUM 142 mmol/L (136-145); TOTAL PROTEIN 6.3 g/dL (6.4-8.2); eGFR BLACK RACES 22 (>60); eGFR NON BLACK RACES 18 (>60)
[2017-03-28 05:31] LABS: BASOPHILS # (AUTO) 0.1 X10^3/uL (0.0-0.1); BASOPHILS % (AUTO) 0.3 % (0.2-1.0); EOSINOPHILS # (AUTO) 1.3 x10^3/uL (0.0-0.2); EOSINOPHILS % (AUTO) 7.5 % (0.9-2.9); HEMATOCRIT 27.3 % (36.0-47.0); HEMOGLOBIN 8.8 g/dL (12.0-16.0); LYMPHOCYTES % (AUTO) 5.7 % (21.0-51.0); MEAN CORPUSCULAR HEMOGLOBIN 29.8 pg (27.0-34.0); MEAN CORPUSCULAR HGB CONC 32.3 g/dL (33.0-35.0); MEAN CORPUSCULAR VOLUME 92.2 fL (80.0-100.0); MEAN PLATELET VOLUME 10.3 fL (7.4-11.0); MONOCYTES # (AUTO) 1.7 x10^3/uL (0.3-0.8); MONOCYTES % (AUTO) 9.4 % (0.0-13.0); NEUTROPHILS # (AUTO) 13.8 x10^3/uL (2.2-4.8); NEUTROPHILS % (AUTO) 77.1 % (42.0-75.0); PLATELET COUNT 107 X10^3/uL (150.0-450.0); RED BLOOD COUNT 2.96 X10^6/uL (3.5-5.4); RED CELL DISTRIBUTION WIDTH 16.2 % (11.6-16.5); WHITE BLOOD COUNT 17.9 X10^3/uL (3.6-10.0)
[2017-03-28] MEDS: NS 1000 ML 1,000 ML IV SCH ×2 (05:56→21:22)
[2017-03-28] MEDS: ALPHAGAN P 0.15% OPHTH SOLN LEFTEYE SCH ×3 (05:56→21:21)
[2017-03-28 06:10] LABS: BAND NEUTROPHILS % 10 % (0-10); METAMYELOCYTES % 2; PLATELET MORPHOLOGY COMMENT NORMAL (NORMAL)
--- NOTE | 2017-03-28 07:29 | RAD ---
Chest, one view Indication: Hypotension, chest pain. Comparison: 03/27/2017 Findings: Borderline cardiac silhouette enlargement is unchanged. There is stable positioning of the right subclavian Port-A-Cath and left-sided cardiac device and leads. There is no overt edema, dens e infiltrate, or large effusion. Impression: No significant change. Reported By:
[2017-03-28] MEDS: ROBITUSSIN DM PEG SCH ×4 (09:12→21:30)
[2017-03-28] MEDS: PROTONIX INJ 40 MG VIAL IVP SCH (09:12)
[2017-03-28] MEDS: LIPITOR TAB 20 MG PEG SCH (09:13)
[2017-03-28] MEDS: CELEXA PEG SCH (09:13)
[2017-03-28] MEDS: FORTAZ or TAZICEF INJ 1 GM in NS 50 ML IV + SPIKE MINIBAG* 50 ML IV SCH (09:13)
[2017-03-28] MEDS: PLAVIX PEG SCH (09:13)
[2017-03-28] MEDS: ALBUMIN HUMAN 25%- 100ML 100 ML IV SCH (09:14)
[2017-03-28] MEDS: VANCOMYCIN 1 GM PREMIX (ADDVANTAGE) 250 ML IV SCH (09:14)
[2017-03-28] MEDS: ARTIFICIAL TEARS DROPS EACHEYE SCH ×2 (09:15→21:18)
[2017-03-28] MEDS: COSOPT OPTH LEFTEYE SCH ×2 (09:15→21:19)
[2017-03-28 09:47] VITALS: BMI 32.4
[2017-03-28] MEDS ORDERED: PHARMACY CONSULT - TPN XX SCH (10:00)
--- NOTE | 2017-03-28 11:23 | PCM.PROG ---
Progress Note - Progress Note for Day of Date: 03/28/17 - Subjective Subjective: PATIENT IS ALERT THIS MORNING AND RESPONDING TO VERBAL STIMULI. PATIENT CONTINUES ON PNEUMONIA PROTOCOL WITH IV ANTIBIOTICS AND AGGRESSIVE NEB TREATMENTS. WE STARTED WEANING OFF OF LEVOPHED DRIP YESTERDAY. THIS MORNING, IT CONTINUES AT 3.67 MLS/HR. BLOOD PRESSURE THIS MORNING IS 97/47, PULSE 68. PATIENT RECEIVES NUTRITION VIA PEG TUBE ONLY. ON AUSCULTATION, LUNGS CONTINUE WITH SCATTERED WHEEZING THROUGHOUT. FINAL SUPUTUM CULTURE REPOPTS KLEBSIELLA PNEUMONIAE WHICH IS SENSITIVE TO FORTAZ. FINAL URINE CULTURE REPORTS ENTEROCOCCUS FAECALIS WHICH IS SENSITIVE TO VANCOMYCIN. CBC WNL EXCEPT: WBC IMPROVED FROM 26.9 TO 17.9, H/H 8.8/27.3, PLT COUNT 107. CMP WNL EXCEPT: BUN/ CREAT 90/2.73, GFR 18, GLUCOSE 102, CALCIUM 8.3, AST 42, ALT 73, ALBUMIN 2.5. CRP 176.70. WE WILL START TPN, DECREASE IVF TO KVO, CONTINUE TO WEAN LEVOPHED DRIP, AND CONTINUE AGGRESSIVE PULMONARY TOILETING. WE WILL FOLLOW UP IN AM WITH LABS AND CHEST XRAY. - Past Medical Family Social History Past Med/Fam/Surg Hx: No changes since H&P Allergies: Allergies Tuberculin Tests Allergy (Verified 06/28/16 07:14) - Review of Systems ROS: No change since H&P - Vital Signs and I&O's Vital Signs: Temperature 99.3 F Pulse Rate [Apical] 71 Pulse Rate 68 Respiratory Rate 24 Blood Pressure [Right Arm] 117/53 Blood Pressure [Left Arm] 90/51 O2 Sat by Pulse Oximetry 100 Intake and Output: Intake & Output 03/25/17 03/26/17 03/27/17 03/28/17 11:59 11:59 11:59 11:59 Intake Total 663 3734 2888 Output Total 250 325 700 Balance 413 5380 2188 - Physical Exam Oriented: Person Eyes: Normal. negative: Discharge, Pain, Redness, Photophobia Ear: Normal. negative: Swelling, Ecchymosis, Hemotypanum, Abrasion, Laceration Nose: Normal. negative: Injected, Discharge, Blood Throat: Dry. negative: Tonsillar Hypertrophy, Exudate Respiratory: Generalized, Wheezes Cardiovascular: Normal. negative: Murmur, Edema : Frequency, Discharge. negative: Hematuria, Bleeding, Auscultation: Bowel Sounds: Decreased. negative: Bruit Palpation: Normal. negative: Spleen Enlarged, Liver Enlarged, Mass Pulsatile Tenderness: Diffuse, Mild. negative: Rebound, Guarding, Rigidity Skin: Decreased Turgur. negative: Diaphoresis, Wound, Bruising, Ecchymosis Musculoskeletal: Instability (Non-ambulatory) Psychiatric: Normal Mood Description: Calm, Appropriate Affect: Normal Speech Pattern: Clear, Delayed - Laboratory and Diagnostics Result Diagrams: 03/28/17 03:10 03/28/17 03:10 Labs: 03/26/17 17:52 Sputum - Expectorated Sputum Sputum Culture - Final Klebsiella Pneumoniae 03/26/17 17:52 Sputum - Expectorated Sputum - Final 03/26/17 01:10 Blood Blood Culture - Preliminary Laboratory WBC 17.9 X10^3/uL (3.6-10.0) H 03/28/17 03:10 RBC 2.96 X10^6/uL (3.5-5.4) L 03/28/17 03:10 Hgb 8.8 g/dL (12.0-16.0) L 03/28/17 03:10 Hct 27.3 % (36.0-47.0) L 03/28/17 03:10 MCV 92.2 fL (80.0-100.0) 03/28/17 03:10 MCH 29.8 pg (27.0-34.0) 03/28/17 03:10 MCHC 32.3 g/dL (33.0-35.0) L 03/28/17 03:10 RDW 16.2 % (11.6-16.5) 03/28/17 03:10 Plt Count 107 X10^3/uL (150.0-450.0) L 03/28/17 03:10 Plt Count Comment Decreased (ADEQUATE) A 03/28/17 03:10 MPV 10.3 fL (7.4-11.0) 03/28/17 03:10 Neut % 77.1 % (42.0-75.0) H 03/28/17 03:10 Lymph % 5.7 % (21.0-51.0) L 03/28/17 03:10 [place] % 9.4 % (0.0-13.0) 03/28/17 03:10 Eos % 7.5 % (0.9-2.9) H 03/28/17 03:10 Baso % 0.3 % (0.2-1.0) 03/28/17 03:10 Neut # 13.8 x10^3/uL (2.2-4.8) H 03/28/17 03:10 Lymph # 1.0 X10^3/uL (1.3-2.9) L 03/28/17 03:10 [place] # 1.7 x10^3/uL (0.3-0.8) H 03/28/17 03:10 Eos # 1.3 x10^3/uL (0.0-0.2) H 03/28/17 03:10 Baso # 0.1 X10^3/uL (0.0-0.1) 03/28/17 03:10 Absolute Nucleated RBC 0.0 /100WBC 03/28/17 03:10 Total Counted 100 03/28/17 03:10 Neutrophils % (Manual) 79 % (39-76) H 03/28/17 03:10 Band Neutrophils % 10 % (0-10) 03/28/17 03:10 Lymphocytes % (Manual) 5 % (13-43) L 03/28/17 03:10 Monocytes % (Manual) 2 % (4-9) L 03/28/17 03:10 Eosinophils % (Manual) 2 % (0-6) 03/28/17 03:10 Metamyelocytes % 2 03/28/17 03:10 Plt Morphology Comment Normal (NORMAL) 03/28/17 03:10 RBC Morphology Normal (NORMAL) 03/28/17 03:10 INR Target Range - 03/26/17 07:18 INR 1.38 (0.8-1.3) H 03/26/17 07:18 PTT 28.5 SECONDS (22.9-36.5) 03/26/17 15:00 PTT Comment - 03/26/17 15:00 Sample Site Rfem 03/25/17 22:54 ABG pH 7.310 (7.35-7.45) L 03/25/17 22:54 ABG pCO2 50.0 mmHg (35.0-45.0) H 03/25/17 22:54 ABG pO2 100.0 mmHg (80.0-100.0) 03/25/17 22:54 ABG HCO3 25.2 mmol/L (22-26) 03/25/17 22:54 ABG O2 Saturation 97.0 % (90-100) 03/25/17 22:54 ABG Base Excess -1.6 mmol/L (-2.0-2.0) 03/25/17 22:54 Richard Test N/a 03/25/17 22:54 A-a Gradient 37.0 mmHg 03/25/17 22:54 FiO2 28.000 03/25/17 22:54 Blood Gas Comments Leonila well ae 03/25/17 22:54 Sodium 142 mmol/L (136-145) 03/28/17 03:10 Corrected Sodium TNP 03/28/17 03:10 Potassium 3.9 mmol/L (3.5-5.1) 03/28/17 03:10 Chloride 107 mmol/L (98-107) 03/28/17 03:10 Carbon Dioxide 25.4 mmol/L (21-32) 03/28/17 03:10 BUN 90 mg/dL (7-18) H 03/28/17 03:10 Creatinine 2.73 mg/dL (0.55-1.02) H 03/28/17 03:10 Est GFR (MDRD) Af Amer 22 (>60) L 03/28/17 03:10 Est GFR (MDRD) Non-Af 18 (>60) L 03/28/17 03:10 Glucose 102 mg/dL (65-99) H 03/28/17 03:10 Lactic Acid 2.9 mmol/L (0.4-2.0) H 03/26/17 01:10 Calcium 8.3 mg/dL (8.5-10.1) L 03/28/17 03:10 Corrected Calcium 9.5 mg/dL (8.5-10.1) 03/28/17 03:10 Magnesium 1.9 mg/dL (1.7-2.9) 03/26/17 07:18 Total Bilirubin 0.30 mg/dL (0.2-1.0) 03/28/17 03:10 AST 42 Units/L (15-37) H 03/28/17 03:10 ALT 63 Units/L (12-78) 03/28/17 03:10 Alkaline Phosphatase 81 Units/L (46-116) 03/28/17 03:10 Creatine Kinase 371 Units/L (26-192) H 03/26/17 10:10 CK-MB (CK-2) 4.8 ng/mL (0-4.0) H* 03/26/17 10:10 CK/CKMB % Calc 1.3 % (<4) 03/26/17 10:10 Troponin I 0.09 ng/mL (0-1.5) 03/26/17 10:10 C-Reactive Protein 176.70 mg/L (0-3.0) H 03/28/17 03:10 B-Natriuretic Peptide 718 pg/mL (0-79) H* 03/25/17 16:30 Total Protein 6.3 g/dL (6.4-8.2) L 03/28/17 03:10 Albumin 2.5 g/dL (3.4-5.0) L 03/28/17 03:10 Globulin 3.8 g/dL (2.5-4.5) 03/28/17 03:10 Albumin/Globulin Ratio 0.7 Ratio (1.1-2.1) L 03/28/17 03:10 Triglycerides 94 mg/dL (0-150) 03/26/17 07:18 Cholesterol 82 mg/dL (0-200) 03/26/17 07:18 LDL Cholesterol, Calc 15 mg/dL (0-100) 03/26/17 07:18 HDL Cholesterol 48 mg/dL (40-60) 03/26/17 07:18 Cholesterol/HDL Ratio 1.7 (0.0-5.0) 03/26/17 07:18 Amylase 135 Units/L (25-115) H 03/25/17 16:30 Lipase 510 Units/L (73-393) H 03/25/17 16:30 Specimen Type Catherized urine 03/25/17 23:12 Urine Color Yellow (YELLOW) 03/25/17 23:12 Urine Appearance Clear (CLEAR) 03/25/17 23:12 Urine pH 6.5 (5.0 - 8.0) 03/25/17 23:12 Ur Specific [place] 1.010 (1.000-1.030) 03/25/17 23:12 Urine Protein 3+ (NEGATIVE) 03/25/17 23:12 Urine Glucose (UA) Negative (NEGATIVE) 03/25/17 23:12 Urine Ketones Negative (NEGATIVE) 03/25/17 23:12 Urine Occult Blood Negative (NEGATIVE) 03/25/17 23:12 Urine Nitrite Negative (NEGATIVE) 03/25/17 23:12 Urine Bilirubin Negative (NEGATIVE) 03/25/17 23:12 Urine Urobilinogen Normal (NORMAL) 03/25/17 23:12 Ur Leukocyte Esterase 1+ (NEGATIVE) 03/25/17 23:12 Urine RBC None seen /HPF (NEGATIVE) 03/25/17 23:12 Urine WBC 6-8 /HPF (NEGATIVE) 03/25/17 23:12 Ur Squamous Epith Cells Rare /HPF (NEGATIVE) 03/25/17 23:12 Urine Bacteria 1+ /HPF (NEGATIVE) 03/25/17 23:12 Ur Culture Indicated? Yes/culture set up 03/25/17 23:12 - Plan (1) Septicemia Status: Suspected Plan: CONTINUE VANCOMYCIN IV, FORTAZ IV, IV FLUIDS, MONITOR VITAL SIGNS, AWAIT BLOOD CULTURE C&S. (2) Pneumonia Status: Acute Qualifiers: Pneumonia type: due to Klebsiella pneumoniae Aspiration pneumonia type: A Laterality: right Lung location: lower lobe of lung Qualified Code(s): J15.0 - Pneumonia due to Klebsiella pneumoniae Plan: CONTINUE PNEUMONIA PROTOCOL: IV VANCOMYCIN, IV FORTAZ, AGGRESSIVE NEB TREATMENTS, INCENTIVE SPIROMETER, SUPPLEMENTAL OXYGEN, ROBITUSSIN, MONITOR LABS AND CHEST XRAY. (3) Hypotension Status: Acute Qualifiers: Hypotension type: other hypotension type Trimester: T Qualified Code(s): I95.89 - Other hypotension Plan: WEAN LEVOPHED DRIP, MONITOR ON STAVE LOG RIPSAW OPERATOR VITAL SIGNS, SUPPLEMENTAL OXYGEN, MONITOR BLOOD PRESSURE EVERY HOUR. (4) Chest pain Status: Acute Qualifiers: Chest pain type: precordial pain Ischemic chest pain type: I Qualified Code(s): R07.2 - Precordial pain Plan: WEAN LEVOPHED DRIP, MONITOR ON TELEMETRY, MONITOR VITAL SIGNS, SUPPLEMENTAL OXYGEN. (5) Abdominal pain Status: Acute Qualifiers: Abdominal location: generalized Qualified Code(s): R10.84 - Generalized abdominal pain Plan: CONTINUE IV FLUIDS, PEPCID, PROTONIX, MONITOR. (6) Mental status alteration Status: Acute Qualifiers: Altered mental status type: disorientation Coma depth: C Coma timing: C Qualified Code(s): R41.0 - Disorientation, unspecified Plan: CONTINUE TO MONITOR. (7) Enterococcus UTI Status: Acute Plan: CONTINUE VANCOMYCIN IV, IV FLUIDS, MONITOR (8) UTI (urinary tract infection) Status: Acute Qualifiers: Urinary tract infection type: acute cystitis Hematuria presence: without hematuria Indwelling urinary catheter type: I Encounter type: E Qualified Code(s): N30.00 - Acute cystitis without hematuria Plan: CONTINUE VANCOMYCIN IV, IV FLUIDS, AND MONITOR. (9) CAD (coronary artery disease) Status: Chronic Qualifiers: Coronary Disease-Associated Artery/Lesion type: [place] artery [place] vs. transplanted heart: [place] heart Associated angina: without angina Qualified Code(s): I25.10 - Atherosclerotic heart disease of [place] coronary artery without angina pectoris (10) CHF (congestive heart failure) Status: Chronic Qualifiers: Congestive heart failure type: C Congestive heart failure chronicity: acute on chronic (11) Chronic renal failure Status: Chronic Qualifiers: Chronic kidney disease stage: stage 4 (severe) Qualified Code(s): N18.4 - Chronic kidney disease, stage 4 (severe) (12) Constipation by delayed colonic transit Status: Chronic (13) Dementia Status: Chronic Qualifiers: Dementia type: vascular dementia Alzheimer's disease onset: A Dementia behavioral disturbance: without behavioral disturbance Qualified Code(s): F01.50 - Vascular dementia without behavioral disturbance (14) Depression Status: Chronic Qualifiers: Depression Type: major depressive disorder Major depression recurrence: recurrent Active/Remission status: currently active Major depression episode severity: moderate Psychotic features: P Trimester: T Qualified Code(s): F33.1 - Major depressive disorder, recurrent, moderate (15) Diabetes mellitus, type 2 Status: Chronic Qualifiers: Diabetes mellitus complication status: with kidney complications Diabetes mellitus complication detail: with chronic kidney disease Diabetic retinopathy severity: D Proliferative retinopathy type: P Diabetes mellitus macular edema: D Diabetes mellitus long-term insulin use: with parts picker use Laterality: L Chronic kidney disease stage: stage 4 (severe) Qualified Code(s): E11.22 - Type 2 diabetes mellitus with diabetic chronic kidney disease (16) Dysphagia as late effect of cerebrovascular accident (CVA) Status: Chronic (17) Essential hypertension Status: Chronic (18) GERD (gastroesophageal reflux disease) Status: Chronic Qualifiers: Esophagitis presence: esophagitis presence not specified Qualified Code(s) : K21.9 - Gastro-esophageal reflux disease without esophagitis (19) History of CVA (cerebrovascular accident) Status: Chronic (20) Hyperlipidemia Status: Chronic Qualifiers: Hyperlipidemia type: mixed hyperlipidemia Qualified Code(s): E78.2 - Mixed hyperlipidemia (21) Pacemaker Status: Chronic (22) S/P percutaneous endoscopic gastrostomy (PEG) tube placement Status: Acute
[2017-03-28] MEDS ORDERED: [UNRECOGNIZED DRUG - OTHER] IV SCH ×5 (13:00)
[2017-03-28] MEDS ORDERED: TRACE ELEMENTS IV SCH ×5 (13:00)
[2017-03-28] MEDS ORDERED: CLINIMIX IV SCH ×5 (13:00)
[2017-03-28] MEDS ORDERED: MVI IV SCH ×5 (13:00)
[2017-03-28] MEDS: CLINIMIX IV SCH ×5 (16:03)
[2017-03-28] MEDS: TRACE ELEMENTS IV SCH ×5 (16:03)
[2017-03-28] MEDS: MVI IV SCH ×5 (16:03)
[2017-03-28] MEDS: [UNRECOGNIZED DRUG - OTHER] IV SCH ×5 (16:03)
[2017-03-28] MEDS: XALATAN LEFTEYE SCH (21:21)
[2017-03-28] MEDS: LIPOSYN III 20% 250ML 250 ML IV SCH (21:28)
[2017-03-29] MEDS: DUONEB 0.5 MG/3 MG NEB SCH ×6 (01:20→20:48)
[2017-03-29] MEDS ORDERED: ZOFRAN INJ 4 MG VIAL ONE (05:04)
[2017-03-29] MEDS: ZOFRAN INJ 4 MG VIAL IVP PRN (05:06)
--- NOTE | 2017-03-29 06:10 | RAD ---
HISTORY: Cough, congestion Study: Chest one view Comparison: March 28, 2017 Findings: There is a port present on the right. There is a pacemaker present on the left. The heart is enlarge d. No congestive heart failure is noted. No acute alveolar infiltrates or pleural effusions are iden tified. The bony thorax is unremarkable. IMPRESSION: Cardiomegaly without congestive heart failure Lungs clear Reported By:
[2017-03-29 06:17] LABS: ALBUMIN 2.6 g/dL (3.4-5.0); C-REACTIVE PROTEIN 137.4 mg/L (0-3.0); CALCIUM 8.4 mg/dL (8.5-10.1); CARBON DIOXIDE 23.4 mmol/L (21-32); COR CA(FOR HYPOALB) 9.5 mg/dL (8.5-10.1); CREATININE 2.76 mg/dL (0.55-1.02); TOTAL PROTEIN 6.6 g/dL (6.4-8.2)
[2017-03-29 06:22] LABS: BASOPHILS # (AUTO) 0.1 X10^3/uL (0.0-0.1); BASOPHILS % (AUTO) 0.6 % (0.2-1.0); EOSINOPHILS # (AUTO) 0.3 x10^3/uL (0.0-0.2); EOSINOPHILS % (AUTO) 2.1 % (0.9-2.9); HEMATOCRIT 28.7 % (36.0-47.0); HEMOGLOBIN 9.6 g/dL (12.0-16.0); LYMPHOCYTES # (AUTO) 0.6 X10^3/uL (1.3-2.9); LYMPHOCYTES % (AUTO) 4.5 % (21.0-51.0); MEAN CORPUSCULAR HEMOGLOBIN 31.1 pg (27.0-34.0); MEAN CORPUSCULAR HGB CONC 33.5 g/dL (33.0-35.0); MEAN CORPUSCULAR VOLUME 92.7 fL (80.0-100.0); MONOCYTES # (AUTO) 0.1 x10^3/uL (0.3-0.8); MONOCYTES % (AUTO) 1.1 % (0.0-13.0); NEUTROPHILS # (AUTO) 12.1 x10^3/uL (2.2-4.8); NEUTROPHILS % (AUTO) 91.7 % (42.0-75.0); PLATELET COUNT 105 X10^3/uL (150.0-450.0); RED CELL DISTRIBUTION WIDTH 16.4 % (11.6-16.5); WHITE BLOOD COUNT 13.2 X10^3/uL (3.6-10.0)
[2017-03-29 07:09] LABS: BAND NEUTROPHILS % 4 % (0-10); PLATELET MORPHOLOGY COMMENT NORMAL (NORMAL)
[2017-03-29] MEDS: ALPHAGAN P 0.15% OPHTH SOLN LEFTEYE SCH ×3 (07:27→21:26)
[2017-03-29 09:37] LABS: CREATININE 2.81 mg/dL (0.55-1.02); VANCOMYCIN,TROUGH 23.8 ug/mL (15-20)
[2017-03-29] MEDS: ALBUMIN HUMAN 25%- 100ML 100 ML IV SCH (09:37)
[2017-03-29] MEDS: FORTAZ or TAZICEF INJ 1 GM in NS 50 ML IV + SPIKE MINIBAG* 50 ML IV SCH (09:40)
[2017-03-29] MEDS: PROTONIX INJ 40 MG VIAL IVP SCH (09:41)
[2017-03-29] MEDS: PEPCID 20 MG IV PREMIX* 20 MG/50 ML BAG IV SCH (09:45)
[2017-03-29] MEDS: ROBITUSSIN DM PEG SCH ×4 (09:45→21:21)
[2017-03-29] MEDS: CELEXA PEG SCH (09:45)
[2017-03-29] MEDS: LIPITOR TAB 20 MG PEG SCH (09:45)
[2017-03-29] MEDS: ARTIFICIAL TEARS DROPS EACHEYE SCH ×2 (09:53→21:24)
[2017-03-29] MEDS: PLAVIX PEG SCH (10:01)
[2017-03-29] MEDS: COSOPT OPTH LEFTEYE SCH ×2 (10:28→21:21)
[2017-03-29] MEDS: VANCOMYCIN 1 GM PREMIX (ADDVANTAGE) 250 ML IV SCH (10:42)
[2017-03-29] MEDS: CLINIMIX IV SCH ×5 (10:44)
[2017-03-29] MEDS: TRACE ELEMENTS IV SCH ×5 (10:44)
[2017-03-29] MEDS: [UNRECOGNIZED DRUG - OTHER] IV SCH ×5 (10:44)
[2017-03-29] MEDS: MVI IV SCH ×5 (10:44)
--- NOTE | 2017-03-29 10:52 | PCM.PROG ---
Progress Note - Progress Note for Day of Date: 03/29/17 - Subjective Subjective: PATIENT IS LYING IN BED ASLEEP THIS MORNING ON MORNING ROUNDS. PATIENT RESPONDS TO VERBAL STIMULI. PATIENT CONTINUES ON PNEUMONIA PROTOCOL WITH IV ANTIBIOTICS AND AGGRESSIVE NEB TREATMENTS. PATIENT HAS BEEN WEANED OFF OF LEVOPHED DRIP THIS MORNING. BLOOD PRESSURE THIS MORNING IS 109/48, PULSE 73. PATIENT RECEIVES NUTRITION VIA PEG TUBE AND IS RECEIVING TPN. ON AUSCULTATION, LUNGS CONTINUE WITH SCATTERED WHEEZING THROUGHT. IVF WILL BE INCREASED TO 100 ML /HR CBC WNL EXCEPT: WBC IMPROVED FROM 17.9 TO 13.2, H/H 9.6/28.7, PLT COUNT 105. CMP WNL EXCEPT: BUN/CREAT 92/2.76, GFR 18, GLUCOSE 145, CALCIUM 8.4, ALBUMIN 2.6. CRP 137.40. WE CONTINUE AGGRESSIVE PULMONARY TOILETING. WE WILL FOLLOW UP IN AM WITH LABS AND CHEST XRAY. - Past Medical Family Social History Past Med/Fam/Surg Hx: No changes since H&P Allergies: Allergies Tuberculin Tests Allergy (Verified 06/28/16 07:14) - Review of Systems ROS: No change since H&P - Vital Signs and I&O's Vital Signs: Temperature 99.4 F Pulse Rate [Apical] 73 Pulse Rate 70 Respiratory Rate 20 Blood Pressure [Right Arm] 109/48 Blood Pressure [Left Arm] 90/51 O2 Sat by Pulse Oximetry 100 Intake and Output: Intake & Output 03/26/17 03/27/17 03/28/17 03/29/17 11:59 11:59 11:59 11:59 Intake Total 663 3734 2888 3487 Output Total 250 156 377 3160 Balance 413 3409 2188 2437 - Physical Exam Oriented: Person Eyes: Normal. negative: Discharge, Pain, Redness, Photophobia Ear: Normal. negative: Swelling, Ecchymosis, Hemotypanum, Abrasion, Laceration Nose: Normal. negative: Injected, Discharge, Blood Throat: Dry. negative: Tonsillar Hypertrophy, Exudate Respiratory: Generalized, Wheezes Cardiovascular: Normal. negative: Murmur, Edema : Frequency, Discharge. negative: Hematuria, Bleeding, Auscultation: Bowel Sounds: Decreased. negative: Bruit Palpation: Normal. negative: Spleen Enlarged, Liver Enlarged, Mass Pulsatile Tenderness: Diffuse, Mild. negative: Rebound, Guarding, Rigidity Skin: Decreased Turgur. negative: Diaphoresis, Wound, Bruising, Ecchymosis Musculoskeletal: Instability (Non-ambulatory) Psychiatric: Normal Mood Description: Calm, Appropriate Affect: Normal Speech Pattern: Clear, Delayed - Laboratory and Diagnostics Result Diagrams: 03/29/17 03:40 03/29/17 09:07 Labs: 03/26/17 17:52 Sputum - Expectorated Sputum Sputum Culture - Final Klebsiella Pneumoniae 03/26/17 17:52 Sputum - Expectorated Sputum - Final 03/26/17 01:10 Blood Blood Culture - Preliminary Laboratory WBC 13.2 X10^3/uL (3.6-10.0) H 03/29/17 03:40 RBC 3.10 X10^6/uL (3.5-5.4) L 03/29/17 03:40 Hgb 9.6 g/dL (12.0-16.0) L 03/29/17 03:40 Hct 28.7 % (36.0-47.0) L 03/29/17 03:40 MCV 92.7 fL (80.0-100.0) 03/29/17 03:40 MCH 31.1 pg (27.0-34.0) 03/29/17 03:40 MCHC 33.5 g/dL (33.0-35.0) 03/29/17 03:40 RDW 16.4 % (11.6-16.5) 03/29/17 03:40 Plt Count 105 X10^3/uL (150.0-450.0) L 03/29/17 03:40 Plt Count Comment Decreased (ADEQUATE) A 03/29/17 03:40 MPV 10.0 fL (7.4-11.0) 03/29/17 03:40 Neut % 91.7 % (42.0-75.0) H 03/29/17 03:40 Lymph % 4.5 % (21.0-51.0) L 03/29/17 03:40 [place] % 1.1 % (0.0-13.0) 03/29/17 03:40 Eos % 2.1 % (0.9-2.9) 03/29/17 03:40 Baso % 0.6 % (0.2-1.0) 03/29/17 03:40 Neut # 12.1 x10^3/uL (2.2-4.8) H 03/29/17 03:40 Lymph # 0.6 X10^3/uL (1.3-2.9) L 03/29/17 03:40 [place] # 0.1 x10^3/uL (0.3-0.8) L 03/29/17 03:40 Eos # 0.3 x10^3/uL (0.0-0.2) H 03/29/17 03:40 Baso # 0.1 X10^3/uL (0.0-0.1) 03/29/17 03:40 Absolute Nucleated RBC 0.1 /100WBC 03/29/17 03:40 Total Counted 100 03/29/17 03:40 Neutrophils % (Manual) 80 % (39-76) H 03/29/17 03:40 Band Neutrophils % 4 % (0-10) 03/29/17 03:40 Lymphocytes % (Manual) 10 % (13-43) L 03/29/17 03:40 Monocytes % (Manual) 3 % (4-9) L 03/29/17 03:40 Eosinophils % (Manual) 3 % (0-6) 03/29/17 03:40 Metamyelocytes % 2 03/28/17 03:10 Nucleated RBCs 1 03/29/17 03:40 Plt Morphology Comment Normal (NORMAL) 03/29/17 03:40 RBC Morphology Normal (NORMAL) 03/29/17 03:40 INR Target Range - 03/26/17 07:18 INR 1.38 (0.8-1.3) H 03/26/17 07:18 PTT 28.5 SECONDS (22.9-36.5) 03/26/17 15:00 PTT Comment - 03/26/17 15:00 Sample Site Rfem 03/25/17 22:54 ABG pH 7.310 (7.35-7.45) L 03/25/17 22:54 ABG pCO2 50.0 mmHg (35.0-45.0) H 03/25/17 22:54 ABG pO2 100.0 mmHg (80.0-100.0) 03/25/17 22:54 ABG HCO3 25.2 mmol/L (22-26) 03/25/17 22:54 ABG O2 Saturation 97.0 % (90-100) 03/25/17 22:54 ABG Base Excess -1.6 mmol/L (-2.0-2.0) 03/25/17 22:54 Richard Test N/a 03/25/17 22:54 A-a Gradient 37.0 mmHg 03/25/17 22:54 FiO2 28.000 03/25/17 22:54 Blood Gas Comments Leonila well ae 03/25/17 22:54 Sodium 145 mmol/L (136-145) 03/29/17 03:40 Corrected Sodium 146 mmol/L (136-145) H 03/29/17 03:40 Potassium 4.1 mmol/L (3.5-5.1) 03/29/17 03:40 Chloride 110 mmol/L (98-107) H 03/29/17 03:40 Carbon Dioxide 23.4 mmol/L (21-32) 03/29/17 03:40 BUN 92 mg/dL (7-18) H 03/29/17 03:40 Creatinine 2.81 mg/dL (0.55-1.02) H 03/29/17 09:07 Est GFR (MDRD) Af Amer 22 (>60) L 03/29/17 03:40 Est GFR (MDRD) Non-Af 18 (>60) L 03/29/17 03:40 Glucose 145 mg/dL (65-99) H 03/29/17 03:40 Lactic Acid 2.9 mmol/L (0.4-2.0) H 03/26/17 01:10 Calcium 8.4 mg/dL (8.5-10.1) L 03/29/17 03:40 Corrected Calcium 9.5 mg/dL (8.5-10.1) 03/29/17 03:40 Magnesium 1.9 mg/dL (1.7-2.9) 03/26/17 07:18 Total Bilirubin 0.40 mg/dL (0.2-1.0) 03/29/17 03:40 AST 32 Units/L (15-37) 03/29/17 03:40 ALT 52 Units/L (12-78) 03/29/17 03:40 Alkaline Phosphatase 102 Units/L (46-116) 03/29/17 03:40 Creatine Kinase 371 Units/L (26-192) H 03/26/17 10:10 CK-MB (CK-2) 4.8 ng/mL (0-4.0) H* 03/26/17 10:10 CK/CKMB % Calc 1.3 % (<4) 03/26/17 10:10 Troponin I 0.09 ng/mL (0-1.5) 03/26/17 10:10 C-Reactive Protein 137.40 mg/L (0-3.0) H 03/29/17 03:40 B-Natriuretic Peptide 718 pg/mL (0-79) H* 03/25/17 16:30 Total Protein 6.6 g/dL (6.4-8.2) 03/29/17 03:40 Albumin 2.6 g/dL (3.4-5.0) L 03/29/17 03:40 Globulin 4.0 g/dL (2.5-4.5) 03/29/17 03:40 Albumin/Globulin Ratio 0.7 Ratio (1.1-2.1) L 03/29/17 03:40 Triglycerides 94 mg/dL (0-150) 03/26/17 07:18 Cholesterol 82 mg/dL (0-200) 03/26/17 07:18 LDL Cholesterol, Calc 15 mg/dL (0-100) 03/26/17 07:18 HDL Cholesterol 48 mg/dL (40-60) 03/26/17 07:18 Cholesterol/HDL Ratio 1.7 (0.0-5.0) 03/26/17 07:18 Amylase 135 Units/L (25-115) H 03/25/17 16:30 Lipase 510 Units/L (73-393) H 03/25/17 16:30 Specimen Type Catherized urine 03/25/17 23:12 Urine Color Yellow (YELLOW) 03/25/17 23:12 Urine Appearance Clear (CLEAR) 03/25/17 23:12 Urine pH 6.5 (5.0 - 8.0) 03/25/17 23:12 Ur Specific [place] 1.010 (1.000-1.030) 03/25/17 23:12 Urine Protein 3+ (NEGATIVE) 03/25/17 23:12 Urine Glucose (UA) Negative (NEGATIVE) 03/25/17 23:12 Urine Ketones Negative (NEGATIVE) 03/25/17 23:12 Urine Occult Blood Negative (NEGATIVE) 03/25/17 23:12 Urine Nitrite Negative (NEGATIVE) 03/25/17 23:12 Urine Bilirubin Negative (NEGATIVE) 03/25/17 23:12 Urine Urobilinogen Normal (NORMAL) 03/25/17 23:12 Ur Leukocyte Esterase 1+ (NEGATIVE) 03/25/17 23:12 Urine RBC None seen /HPF (NEGATIVE) 03/25/17 23:12 Urine WBC 6-8 /HPF (NEGATIVE) 03/25/17 23:12 Ur Squamous Epith Cells Rare /HPF (NEGATIVE) 03/25/17 23:12 Urine Bacteria 1+ /HPF (NEGATIVE) 03/25/17 23:12 Ur Culture Indicated? Yes/culture set up 03/25/17 23:12 Vancomycin Trough 23.8 ug/mL (15-20) H 03/29/17 09:07 - Plan (1) Septicemia Status: Suspected Plan: CONTINUE VANCOMYCIN IV, FORTAZ IV, INCREASE IV FLUIDS, MONITOR VITAL SIGNS , AWAIT BLOOD CULTURE C&S. (2) Pneumonia Status: Acute Qualifiers: Pneumonia type: due to Klebsiella pneumoniae Aspiration pneumonia type: A Laterality: right Lung location: lower lobe of lung Qualified Code(s): J15.0 - Pneumonia due to Klebsiella pneumoniae Plan: CONTINUE PNEUMONIA PROTOCOL: IV VANCOMYCIN, IV FORTAZ, AGGRESSIVE NEB TREATMENTS, INCENTIVE SPIROMETER, SUPPLEMENTAL OXYGEN, ROBITUSSIN, MONITOR LABS AND CHEST XRAY. (3) Hypotension Status: Acute Qualifiers: Hypotension type: other hypotension type Trimester: T Qualified Code(s): I95.89 - Other hypotension Plan: INCREASE IVF, MONITOR ON GRAIN BUYER VITAL SIGNS, SUPPLEMENTAL OXYGEN, MONITOR BLOOD PRESSURE EVERY HOUR. (4) Chest pain Status: Acute Qualifiers: Chest pain type: precordial pain Ischemic chest pain type: I Qualified Code(s): R07.2 - Precordial pain Plan: MONITOR ON TELEMETRY, MONITOR VITAL SIGNS, SUPPLEMENTAL OXYGEN. (5) Abdominal pain Status: Acute Qualifiers: Abdominal location: generalized Qualified Code(s): R10.84 - Generalized abdominal pain Plan: CONTINUE IV FLUIDS, PEPCID, PROTONIX, MONITOR. (6) Mental status alteration Status: Acute Qualifiers: Altered mental status type: disorientation Coma depth: C Coma timing: C Qualified Code(s): R41.0 - Disorientation, unspecified Plan: CONTINUE TO MONITOR. (7) Enterococcus UTI Status: Acute Plan: CONTINUE VANCOMYCIN IV, IV FLUIDS, MONITOR (8) UTI (urinary tract infection) Status: Acute Qualifiers: Urinary tract infection type: acute cystitis Hematuria presence: without hematuria Indwelling urinary catheter type: I Encounter type: E Qualified Code(s): N30.00 - Acute cystitis without hematuria Plan: CONTINUE VANCOMYCIN IV, IV FLUIDS, AND MONITOR. (9) CAD (coronary artery disease) Status: Chronic Qualifiers: Coronary Disease-Associated Artery/Lesion type: [place] artery [place] vs. 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 (13) Dementia Status: Chronic Qualifiers: Dementia type: vascular dementia Alzheimer's disease onset: A Dementia behavioral disturbance: without behavioral disturbance Qualified Code(s): F01.50 - Vascular dementia without behavioral disturbance (14) Depression Status: Chronic Qualifiers: Depression Type: major depressive disorder Major depression recurrence: recurrent Active/Remission status: currently active Major depression episode severity: moderate Psychotic features: P Trimester: T Qualified Code(s): F33.1 - Major depressive disorder, recurrent, moderate (15) Diabetes mellitus, type 2 Status: Chronic Qualifiers: Diabetes mellitus complication status: with kidney complications Diabetes mellitus complication detail: with chronic kidney disease Diabetic retinopathy severity: D Proliferative retinopathy type: P Diabetes mellitus macular edema: D Diabetes mellitus mcfp insulin use: with mcfp use Laterality: L Chronic kidney disease stage: stage 4 (severe) Qualified Code(s): E11.22 - Type 2 diabetes mellitus with diabetic chronic kidney disease (16) Dysphagia as late effect of cerebrovascular accident (CVA) Status: Chronic (17) Essential hypertension Status: Chronic (18) GERD (gastroesophageal reflux disease) Status: Chronic Qualifiers: Esophagitis presence: esophagitis presence not specified Qualified Code(s) : K21.9 - Gastro-esophageal reflux disease without esophagitis (19) History of CVA (cerebrovascular accident) Status: Chronic (20) Hyperlipidemia Status: Chronic Qualifiers: Hyperlipidemia type: mixed hyperlipidemia Qualified Code(s): E78.2 - Mixed hyperlipidemia (21) Pacemaker Status: Chronic (22) S/P percutaneous endoscopic gastrostomy (PEG) tube placement Status: Acute
[2017-03-29] MEDS: HumuLIN R SUBCUT PRN (11:56)
[2017-03-29] MEDS: MIRALAX POWDER (1 DOSE 17GM) PO SCH (13:36)
[2017-03-29] MEDS: COLACE SYRUP 100 MG UDC PO SCH ×2 (13:36→21:21)
[2017-03-29] MEDS: MILK OF MAGNESIA PO SCH ×4 (13:37→21:21)
[2017-03-29] MEDS: NS 1000 ML 1,000 ML IV SCH ×2 (17:17→21:21)
[2017-03-29] MEDS: XALATAN LEFTEYE SCH (21:23)
[2017-03-29] MEDS: LIPOSYN III 20% 250ML 250 ML IV SCH (21:28)
[2017-03-30] MEDS: DUONEB 0.5 MG/3 MG NEB SCH ×6 (00:46→20:57)
[2017-03-30] MEDS: NS 1000 ML 1,000 ML IV SCH ×3 (01:00→22:05)
[2017-03-30] MEDS: ZOFRAN INJ 4 MG VIAL IVP PRN (01:59)
[2017-03-30] MEDS: ALPHAGAN P 0.15% OPHTH SOLN LEFTEYE SCH ×3 (05:51→22:04)
[2017-03-30] MEDS: HumuLIN R SUBCUT PRN ×2 (06:11→22:14)
[2017-03-30 06:52] LABS: ALBUMIN 2.8 g/dL (3.4-5.0); C-REACTIVE PROTEIN 102.9 mg/L (0-3.0); CALCIUM 8.5 mg/dL (8.5-10.1); CARBON DIOXIDE 22.1 mmol/L (21-32); COR CA(FOR HYPOALB) 9.5 mg/dL (8.5-10.1); CREATININE 2.79 mg/dL (0.55-1.02); TOTAL PROTEIN 6.7 g/dL (6.4-8.2)
--- NOTE | 2017-03-30 07:06 | RAD ---
HISTORY: Cough and congestion. Study: Single view chest. Comparison: March 29, 2017. Findings: The patient is rotated rightward. The cardiac silhouette is enlarged with a tortuous thoracic aorta . The lungs are clear without focal infiltrate or effusion. The bony thorax is unremarkable. Ther e is a stable right-sided port a catheter CVL. There is a stable pacing device. There is no radiogra phic evidence for florid CHF or other acute cardiopulmonary change. IMPRESSION: Cardiomegaly without acute cardiopulmonary change or CHF. Reported By:
[2017-03-30 07:32] LABS: BASOPHILS # (AUTO) 0.1 X10^3/uL (0.0-0.1); BASOPHILS % (AUTO) 0.4 % (0.2-1.0); EOSINOPHILS # (AUTO) 0.5 x10^3/uL (0.0-0.2); EOSINOPHILS % (AUTO) 3.2 % (0.9-2.9); HEMATOCRIT 29.9 % (36.0-47.0); HEMOGLOBIN 9.6 g/dL (12.0-16.0); LYMPHOCYTES # (AUTO) 1.3 X10^3/uL (1.3-2.9); LYMPHOCYTES % (AUTO) 8.2 % (21.0-51.0); MEAN CORPUSCULAR HEMOGLOBIN 29.7 pg (27.0-34.0); MEAN CORPUSCULAR HGB CONC 32.2 g/dL (33.0-35.0); MEAN CORPUSCULAR VOLUME 92.2 fL (80.0-100.0); MEAN PLATELET VOLUME 9.8 fL (7.4-11.0); NEUTROPHILS # (AUTO) 11.6 x10^3/uL (2.2-4.8); NEUTROPHILS % (AUTO) 75.2 % (42.0-75.0); PLATELET COUNT 96 X10^3/uL (150.0-450.0); RED BLOOD COUNT 3.25 X10^6/uL (3.5-5.4); RED CELL DISTRIBUTION WIDTH 16.4 % (11.6-16.5); WHITE BLOOD COUNT 15.4 X10^3/uL (3.6-10.0)
[2017-03-30 08:20] LABS: BAND NEUTROPHILS % 21 % (0-10)
[2017-03-30 08:21] LABS: PLATELET MORPHOLOGY COMMENT NORMAL (NORMAL)
[2017-03-30] MEDS: ARTIFICIAL TEARS DROPS EACHEYE SCH ×2 (09:05→22:03)
[2017-03-30] MEDS: ALBUMIN HUMAN 25%- 100ML 100 ML IV SCH (09:05)
[2017-03-30] MEDS: MIRALAX POWDER (1 DOSE 17GM) PO SCH (09:05)
[2017-03-30] MEDS: CELEXA PEG SCH (09:06)
[2017-03-30] MEDS: LIPITOR TAB 20 MG PEG SCH (09:06)
[2017-03-30] MEDS: FORTAZ or TAZICEF INJ 1 GM in NS 50 ML IV + SPIKE MINIBAG* 50 ML IV SCH (09:06)
[2017-03-30] MEDS: PROTONIX INJ 40 MG VIAL IVP SCH (09:07)
[2017-03-30] MEDS: MILK OF MAGNESIA PO SCH ×4 (09:07→22:02)
[2017-03-30] MEDS: PLAVIX PEG SCH (09:07)
[2017-03-30] MEDS: ROBITUSSIN DM PEG SCH ×4 (09:08→22:02)
[2017-03-30] MEDS: VANCOMYCIN HCL 500 MG VIAL 750 MG in NS 250 ML IV 250 ML IV SCH (09:08)
[2017-03-30] MEDS: COSOPT OPTH LEFTEYE SCH ×2 (09:08→22:04)
[2017-03-30] MEDS: COLACE SYRUP 100 MG UDC PO SCH ×2 (09:45→22:02)
[2017-03-30] MEDS: CLINIMIX IV SCH ×5 (12:45)
[2017-03-30] MEDS: TRACE ELEMENTS IV SCH ×5 (12:45)
[2017-03-30] MEDS: [UNRECOGNIZED DRUG - OTHER] IV SCH ×5 (12:45)
[2017-03-30] MEDS: MVI IV SCH ×5 (12:45)
--- NOTE | 2017-03-30 14:54 | US ---
HISTORY: Elevated renal function Study: Renal ultrasound Comparison: Technique: Multiple sumner scale and color flow Doppler images of the kidneys were obtained. The yael on of the urinary bladder was evaluated as well. Findings: The right kidney is normal in echotexture and size. The right kidney measures 10.0 x 4.8 x 5.3 cm.. No focal mass, hydronephrosis, or stones identified. Cortical thinning noted consistent with focal c ortical scarring. The left kidney is unremarkable in its echotexture and size. The left kidney measures 9.2 x 4.4 x 5. 1 cm.. No focal mass, hydronephrosis, or stone can be seen within the left kidney. Thinning of the c ortex consistent with focal cortical scarring. lobulation noted. The bladder is not seen. Arndt catheter noted within the decompressed bladder. IMPRESSION: 1. Bilateral focal cortical scarring noted in both kidneys. Arndt catheter noted within the bladder bladder not seen. Reported By:
--- NOTE | 2017-03-30 15:31 | PCM.PROG ---
Progress Note - Progress Note for Day of Date: 03/30/17 - Subjective Subjective: PATIENT DOING A LITTLE BETTER THIS MORNING. PATIENT CONTINUES ON PNEUMONIA PROTOCOL WITH IV ANTIBIOTICS AND AGGRESSIVE NEB TREATMENTS. SPUTUM CULTURE REPORTS KLEBSIELLA PNEUMONIAE WHICH IS SENSITIVE TO FORTAZ. URINE CULTURE REPORTS ENTERCOCCUS FAECALIS WHICH IS SENSITIVE TO VANCOMYCIN. BLOOD PRESSURE IS STABLE THIS MORNING, 133/61, PULSE 79. PATIENT RECEIVES NUTRITION VIA PEG TUBE AND IS RECEIVING TPN. ON AUSCULTATION, LUNGS CONTINUE WITH SCATTERED WHEEZING THROUGHOUT. IV FLUIDS WERE INCREASED TO 100 MLS/HR YESTERDAY DUE TO WORSENING RENAL FUNCTION. RENAL FUNCTION CONTINUES TO WORSEN DESPITE INCREASE OF IV FLUIDS. CBC WNL EXCEPT: WBC 15.4, H/H 9.6/29.9, PLT COUNT 96. CMP WNL EXCEPT: CHL 111, BUN/CREAT 98/2.79, GFR 18, GLUCOSE 210, ALBUMIN 2.8. CRP 102.90. WE WILL OBTAIN RENAL US TODAY. WE WILL CONTINUE AGGRESSIVE PULMONARY TOILETING AND FOLLOW UP IN AM WITH LABS AND CHEST XRAY. - Past Medical Family Social History Past Med/Fam/Surg Hx: No changes since H&P Allergies: Allergies Tuberculin Tests Allergy (Verified 06/28/16 07:14) - Review of Systems ROS: No change since H&P - Vital Signs and I&O's Vital Signs: Temperature 98.0 F Pulse Rate [Apical] 64 Pulse Rate 66 Respiratory Rate 18 Blood Pressure [Right Arm] 136/61 Blood Pressure [Left Arm] 90/51 O2 Sat by Pulse Oximetry 100 Intake and Output: Intake & Output 03/28/17 03/29/17 03/30/17 03/31/17 11:59 11:59 11:59 11:59 Intake Total 2888 3487 6482 Output Total 700 1050 580 Balance 2188 6667 [id number] - Physical Exam Oriented: Person Eyes: Normal. negative: Discharge, Pain, Redness, Photophobia Ear: Normal. negative: Swelling, Ecchymosis, Hemotypanum, Abrasion, Laceration Nose: Normal. negative: Injected, Discharge, Blood Throat: Dry. negative: Tonsillar Hypertrophy, Exudate Respiratory: Generalized, Wheezes Cardiovascular: Normal. negative: Murmur, Edema : Frequency, Discharge. negative: Hematuria, Bleeding, Auscultation: Bowel Sounds: Decreased. negative: Bruit Palpation: Normal Tenderness: Diffuse, Mild. negative: Rebound, Guarding, Rigidity Skin: Decreased Turgur. negative: Diaphoresis, Wound, Bruising, Ecchymosis Musculoskeletal: Instability (Non-ambulatory) Psychiatric: Normal Mood Description: Calm, Appropriate Affect: Normal Speech Pattern: Clear, Delayed - Laboratory and Diagnostics Result Diagrams: 03/30/17 05:50 03/30/17 05:50 Labs: 03/26/17 17:52 Sputum - Expectorated Sputum Sputum Culture - Final Klebsiella Pneumoniae 03/26/17 17:52 Sputum - Expectorated Sputum - Final 03/26/17 01:10 Blood Blood Culture - Preliminary Laboratory WBC 15.4 X10^3/uL (3.6-10.0) H 03/30/17 05:50 RBC 3.25 X10^6/uL (3.5-5.4) L 03/30/17 05:50 Hgb 9.6 g/dL (12.0-16.0) L 03/30/17 05:50 Hct 29.9 % (36.0-47.0) L 03/30/17 05:50 MCV 92.2 fL (80.0-100.0) 03/30/17 05:50 MCH 29.7 pg (27.0-34.0) 03/30/17 05:50 MCHC 32.2 g/dL (33.0-35.0) L 03/30/17 05:50 RDW 16.4 % (11.6-16.5) 03/30/17 05:50 Plt Count 96 X10^3/uL (150.0-450.0) L 03/30/17 05:50 Plt Count Comment Decreased (ADEQUATE) A 03/30/17 05:50 MPV 9.8 fL (7.4-11.0) 03/30/17 05:50 Neut % 75.2 % (42.0-75.0) H 03/30/17 05:50 Lymph % 8.2 % (21.0-51.0) L 03/30/17 05:50 [place] % 13.0 % (0.0-13.0) 03/30/17 05:50 Eos % 3.2 % (0.9-2.9) H 03/30/17 05:50 Baso % 0.4 % (0.2-1.0) 03/30/17 05:50 Neut # 11.6 x10^3/uL (2.2-4.8) H 03/30/17 05:50 Lymph # 1.3 X10^3/uL (1.3-2.9) 03/30/17 05:50 [place] # 2.0 x10^3/uL (0.3-0.8) H 03/30/17 05:50 Eos # 0.5 x10^3/uL (0.0-0.2) H 03/30/17 05:50 Baso # 0.1 X10^3/uL (0.0-0.1) 03/30/17 05:50 Absolute Nucleated RBC 0.2 /100WBC 03/30/17 05:50 Total Counted 100 03/30/17 05:50 Neutrophils % (Manual) 63 % (39-76) 03/30/17 05:50 Band Neutrophils % 21 % (0-10) H 03/30/17 05:50 Lymphocytes % (Manual) 12 % (13-43) L 03/30/17 05:50 Monocytes % (Manual) 3 % (4-9) L 03/30/17 05:50 Eosinophils % (Manual) 1 % (0-6) 03/30/17 05:50 Metamyelocytes % 2 03/28/17 03:10 Nucleated RBCs 1 03/29/17 03:40 Plt Morphology Comment Normal (NORMAL) 03/30/17 05:50 RBC Morphology Normal (NORMAL) 03/30/17 05:50 INR Target Range - 03/26/17 07:18 INR 1.38 (0.8-1.3) H 03/26/17 07:18 PTT 28.5 SECONDS (22.9-36.5) 03/26/17 15:00 PTT Comment - 03/26/17 15:00 Sample Site Rfem 03/25/17 22:54 ABG pH 7.310 (7.35-7.45) L 03/25/17 22:54 ABG pCO2 50.0 mmHg (35.0-45.0) H 03/25/17 22:54 ABG pO2 100.0 mmHg (80.0-100.0) 03/25/17 22:54 ABG HCO3 25.2 mmol/L (22-26) 03/25/17 22:54 ABG O2 Saturation 97.0 % (90-100) 03/25/17 22:54 ABG Base Excess -1.6 mmol/L (-2.0-2.0) 03/25/17 22:54 Richard Test N/a 03/25/17 22:54 A-a Gradient 37.0 mmHg 03/25/17 22:54 FiO2 28.000 03/25/17 22:54 Blood Gas Comments Leonila well ae 03/25/17 22:54 Sodium 143 mmol/L (136-145) 03/30/17 05:50 Corrected Sodium 146 mmol/L (136-145) H 03/30/17 05:50 Potassium 4.6 mmol/L (3.5-5.1) 03/30/17 05:50 Chloride 111 mmol/L (98-107) H 03/30/17 05:50 Carbon Dioxide 22.1 mmol/L (21-32) 03/30/17 05:50 BUN 98 mg/dL (7-18) H 03/30/17 05:50 Creatinine 2.79 mg/dL (0.55-1.02) H 03/30/17 05:50 Est GFR (MDRD) Af Amer 21 (>60) L 03/30/17 05:50 Est GFR (MDRD) Non-Af 18 (>60) L 03/30/17 05:50 Glucose 210 mg/dL (65-99) H 03/30/17 05:50 Lactic Acid 2.9 mmol/L (0.4-2.0) H 03/26/17 01:10 Calcium 8.5 mg/dL (8.5-10.1) 03/30/17 05:50 Corrected Calcium 9.5 mg/dL (8.5-10.1) 03/30/17 05:50 Magnesium 1.9 mg/dL (1.7-2.9) 03/26/17 07:18 Total Bilirubin 0.40 mg/dL (0.2-1.0) 03/30/17 05:50 AST 32 Units/L (15-37) 03/30/17 05:50 ALT 42 Units/L (12-78) 03/30/17 05:50 Alkaline Phosphatase 136 Units/L (46-116) H 03/30/17 05:50 Creatine Kinase 371 Units/L (26-192) H 03/26/17 10:10 CK-MB (CK-2) 4.8 ng/mL (0-4.0) H* 03/26/17 10:10 CK/CKMB % Calc 1.3 % (<4) 03/26/17 10:10 Troponin I 0.09 ng/mL (0-1.5) 03/26/17 10:10 C-Reactive Protein 102.90 mg/L (0-3.0) H 03/30/17 05:50 B-Natriuretic Peptide 718 pg/mL (0-79) H* 03/25/17 16:30 Total Protein 6.7 g/dL (6.4-8.2) 03/30/17 05:50 Albumin 2.8 g/dL (3.4-5.0) L 03/30/17 05:50 Globulin 3.9 g/dL (2.5-4.5) 03/30/17 05:50 Albumin/Globulin Ratio 0.7 Ratio (1.1-2.1) L 03/30/17 05:50 Triglycerides 94 mg/dL (0-150) 03/26/17 07:18 Cholesterol 82 mg/dL (0-200) 03/26/17 07:18 LDL Cholesterol, Calc 15 mg/dL (0-100) 03/26/17 07:18 HDL Cholesterol 48 mg/dL (40-60) 03/26/17 07:18 Cholesterol/HDL Ratio 1.7 (0.0-5.0) 03/26/17 07:18 Amylase 135 Units/L (25-115) H 03/25/17 16:30 Lipase 510 Units/L (73-393) H 03/25/17 16:30 Specimen Type Catherized urine 03/25/17 23:12 Urine Color Yellow (YELLOW) 03/25/17 23:12 Urine Appearance Clear (CLEAR) 03/25/17 23:12 Urine pH 6.5 (5.0 - 8.0) 03/25/17 23:12 Ur Specific [place] 1.010 (1.000-1.030) 03/25/17 23:12 Urine Protein 3+ (NEGATIVE) 03/25/17 23:12 Urine Glucose (UA) Negative (NEGATIVE) 03/25/17 23:12 Urine Ketones Negative (NEGATIVE) 03/25/17 23:12 Urine Occult Blood Negative (NEGATIVE) 03/25/17 23:12 Urine Nitrite Negative (NEGATIVE) 03/25/17 23:12 Urine Bilirubin Negative (NEGATIVE) 03/25/17 23:12 Urine Urobilinogen Normal (NORMAL) 03/25/17 23:12 Ur Leukocyte Esterase 1+ (NEGATIVE) 03/25/17 23:12 Urine RBC None seen /HPF (NEGATIVE) 03/25/17 23:12 Urine WBC 6-8 /HPF (NEGATIVE) 03/25/17 23:12 Ur Squamous Epith Cells Rare /HPF (NEGATIVE) 03/25/17 23:12 Urine Bacteria 1+ /HPF (NEGATIVE) 03/25/17 23:12 Ur Culture Indicated? Yes/culture set up 03/25/17 23:12 Vancomycin Trough 23.8 ug/mL (15-20) H 03/29/17 09:07 - Plan (1) Septicemia Status: Suspected Plan: CONTINUE VANCOMYCIN IV, FORTAZ IV, INCREASE IV FLUIDS, MONITOR VITAL SIGNS , AWAIT BLOOD CULTURE C&S. (2) Pneumonia Status: Acute Qualifiers: Pneumonia type: due to Klebsiella pneumoniae Aspiration pneumonia type: A Laterality: right Lung location: lower lobe of lung Qualified Code(s): J15.0 - Pneumonia due to Klebsiella pneumoniae Plan: CONTINUE PNEUMONIA PROTOCOL: IV VANCOMYCIN, IV FORTAZ, AGGRESSIVE NEB TREATMENTS, INCENTIVE SPIROMETER, SUPPLEMENTAL OXYGEN, ROBITUSSIN, MONITOR LABS AND CHEST XRAY. (3) Acute renal failure Status: Acute Qualifiers: Acute renal failure type: A Plan: OBTAIN RENAL US, MONITOR LABS, CONTINUE IV FLUIDS. (4) Abdominal pain Status: Acute Qualifiers: Abdominal location: generalized Qualified Code(s): R10.84 - Generalized abdominal pain Plan: CONTINUE IV FLUIDS, PEPCID, PROTONIX, MONITOR. (5) Mental status alteration Status: Acute Qualifiers: Altered mental status type: disorientation Coma depth: C Coma timing: C Qualified Code(s): R41.0 - Disorientation, unspecified Plan: CONTINUE TO MONITOR. (6) Enterococcus UTI Status: Acute Plan: CONTINUE VANCOMYCIN IV, IV FLUIDS, MONITOR (7) UTI (urinary tract infection) Status: Acute Qualifiers: Urinary tract infection type: acute cystitis Hematuria presence: without hematuria Indwelling urinary catheter type: I Encounter type: E Qualified Code(s): N30.00 - Acute cystitis without hematuria Plan: CONTINUE VANCOMYCIN IV, IV FLUIDS, AND MONITOR. (8) CAD (coronary artery disease) Status: Chronic Qualifiers: Coronary Disease-Associated Artery/Lesion type: [place] artery [place] vs. 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 (12) Dementia Status: Chronic Qualifiers: Dementia type: vascular dementia Alzheimer's disease onset: A Dementia behavioral disturbance: without behavioral disturbance Qualified Code(s): F01.50 - Vascular dementia without behavioral disturbance (13) Depression Status: Chronic Qualifiers: Depression Type: major depressive disorder Major depression recurrence: recurrent Active/Remission status: currently active Major depression episode severity: moderate Psychotic features: P Trimester: T Qualified Code(s): F33.1 - Major depressive disorder, recurrent, moderate (14) Diabetes mellitus, type 2 Status: Chronic Qualifiers: Diabetes mellitus complication status: with kidney complications Diabetes mellitus complication detail: with chronic kidney disease Diabetic retinopathy severity: D Proliferative retinopathy type: P Diabetes mellitus macular edema: D Diabetes mellitus terminal system operator insulin use: with terminal system operator use Laterality: L Chronic kidney disease stage: stage 4 (severe) Qualified Code(s): E11.22 - Type 2 diabetes mellitus with diabetic chronic kidney disease (15) Dysphagia as late effect of cerebrovascular accident (CVA) Status: Chronic (16) Essential hypertension Status: Chronic (17) GERD (gastroesophageal reflux disease) Status: Chronic Qualifiers: Esophagitis presence: esophagitis presence not specified Qualified Code(s) : K21.9 - Gastro-esophageal reflux disease without esophagitis (18) History of CVA (cerebrovascular accident) Status: Chronic (19) Hyperlipidemia Status: Chronic Qualifiers: Hyperlipidemia type: mixed hyperlipidemia Qualified Code(s): E78.2 - Mixed hyperlipidemia (20) Pacemaker Status: Chronic (21) S/P percutaneous endoscopic gastrostomy (PEG) tube placement Status: Acute (22) Hypotension Status: Resolved Qualifiers: Hypotension type: other hypotension type Trimester: T Qualified Code(s): I95.89 - Other hypotension (23) Chest pain Status: Resolved Qualifiers: Chest pain type: precordial pain Ischemic chest pain type: I Qualified Code(s): R07.2 - Precordial pain Plan: MONITOR ON TELEMETRY, MONITOR VITAL SIGNS, SUPPLEMENTAL OXYGEN.
[2017-03-30] MEDS: DULCOLAX SUPPOSITORY 10 MG RECTAL ONE (16:38)
[2017-03-30] MEDS: XALATAN LEFTEYE SCH (22:03)
[2017-03-30] MEDS: LIPOSYN III 20% 250ML 250 ML IV SCH (22:04)
[2017-03-31] MEDS: DUONEB 0.5 MG/3 MG NEB SCH ×6 (00:47→21:19)
[2017-03-31] MEDS: CLINIMIX IV SCH ×10 (04:43→13:43)
[2017-03-31] MEDS: [UNRECOGNIZED DRUG - OTHER] IV SCH ×10 (04:43→13:43)
[2017-03-31] MEDS: TRACE ELEMENTS IV SCH ×10 (04:43→13:43)
[2017-03-31] MEDS: MVI IV SCH ×10 (04:43→13:43)
[2017-03-31 06:07] LABS: BASOPHILS % (AUTO) 0.4 % (0.2-1.0); EOSINOPHILS # (AUTO) 0.5 x10^3/uL (0.0-0.2); EOSINOPHILS % (AUTO) 3.6 % (0.9-2.9); HEMATOCRIT 27.4 % (36.0-47.0); HEMOGLOBIN 9.1 g/dL (12.0-16.0); LYMPHOCYTES # (AUTO) 1.4 X10^3/uL (1.3-2.9); LYMPHOCYTES % (AUTO) 10.5 % (21.0-51.0); MEAN CORPUSCULAR HEMOGLOBIN 30.4 pg (27.0-34.0); MEAN CORPUSCULAR HGB CONC 33.2 g/dL (33.0-35.0); MEAN CORPUSCULAR VOLUME 91.6 fL (80.0-100.0); MEAN PLATELET VOLUME 9.5 fL (7.4-11.0); MONOCYTES # (AUTO) 0.5 x10^3/uL (0.3-0.8); MONOCYTES % (AUTO) 3.8 % (0.0-13.0); NEUTROPHILS % (AUTO) 81.7 % (42.0-75.0); PLATELET COUNT 110 X10^3/uL (150.0-450.0); RED BLOOD COUNT 2.99 X10^6/uL (3.5-5.4); RED CELL DISTRIBUTION WIDTH 16.5 % (11.6-16.5); WHITE BLOOD COUNT 13.5 X10^3/uL (3.6-10.0)
[2017-03-31] MEDS: ALPHAGAN P 0.15% OPHTH SOLN LEFTEYE SCH ×3 (06:33→21:18)
[2017-03-31] MEDS: HumuLIN R SUBCUT PRN ×4 (06:57→21:20)
[2017-03-31 06:58] LABS: ALBUMIN 2.9 g/dL (3.4-5.0); C-REACTIVE PROTEIN 71.6 mg/L (0-3.0); CALCIUM 8.5 mg/dL (8.5-10.1); CARBON DIOXIDE 21.9 mmol/L (21-32); COR CA(FOR HYPOALB) 9.4 mg/dL (8.5-10.1); CREATININE 2.83 mg/dL (0.55-1.02); TOTAL PROTEIN 6.7 g/dL (6.4-8.2)
[2017-03-31 09:02] LABS: BAND NEUTROPHILS % 7 % (0-10); PLATELET MORPHOLOGY COMMENT NORMAL (NORMAL)
[2017-03-31] MEDS: ARTIFICIAL TEARS DROPS EACHEYE SCH ×2 (09:31→21:16)
[2017-03-31] MEDS: VANCOMYCIN HCL 500 MG VIAL 750 MG in NS 250 ML IV 250 ML IV SCH (09:32)
[2017-03-31] MEDS: ALBUMIN HUMAN 25%- 100ML 100 ML IV SCH (09:32)
[2017-03-31] MEDS: MIRALAX POWDER (1 DOSE 17GM) PO SCH (09:33)
[2017-03-31] MEDS: PEPCID 20 MG IV PREMIX* 20 MG/50 ML BAG IV SCH (09:33)
[2017-03-31] MEDS: FORTAZ or TAZICEF INJ 1 GM in NS 50 ML IV + SPIKE MINIBAG* 50 ML IV SCH (09:33)
[2017-03-31] MEDS: PROTONIX INJ 40 MG VIAL IVP SCH (09:33)
[2017-03-31] MEDS: MILK OF MAGNESIA PO SCH ×4 (09:33→21:17)
[2017-03-31] MEDS: DULCOLAX SUPPOSITORY 10 MG RECTAL ONE ×4 (09:34→14:35)
[2017-03-31] MEDS: PLAVIX PEG SCH (09:34)
[2017-03-31] MEDS: CELEXA PEG SCH (09:34)
[2017-03-31] MEDS: ROBITUSSIN DM PEG SCH ×4 (09:34→21:18)
[2017-03-31] MEDS: COSOPT OPTH LEFTEYE SCH ×2 (09:34→21:19)
[2017-03-31] MEDS: COLACE SYRUP 100 MG UDC PO SCH ×2 (09:34→21:17)
[2017-03-31] MEDS: LIPITOR TAB 20 MG PEG SCH (09:34)
--- NOTE | 2017-03-31 10:17 | RAD ---
HISTORY: AMS, shortness of breath Study: AP chest obtained 5:59 a.m. Comparison: Findings: This is a limited study the patient is markedly rotated towards the right. Repeat chest film in the AP projection may be of further use to evaluate this patient. The trachea is midline . There is no w idening or shift of mediastinum. Cardiac pacer overlies the left upper lung field leads evident lowe r are lie the right age The cardiac silhouette appears within normal limits. The costophrenic angles are sharp and both diaphragms are adequately maintained. The lungs are adequately aerated. Osseous structures are within normal limits for the patient's age limited evaluation of the right lower lobe is possible due to marked rotation of the patient. Minimal patchy infiltrate noted in the left lowe r lobe consistent with pneumonia. IMPRESSION: 1. Limited study due to marked rotation of patient towards the right. Mild cardiomegaly. Patchy left lower lobe infiltrate. Please see comments above. Right subcutaneous injection port catheter tip in superior vena cava. Reported By:
[2017-03-31] MEDS ORDERED: DULCOLAX SUPPOSITORY 10 MG ONE ×2 (11:41→14:00)
[2017-03-31] MEDS: NS 1000 ML 1,000 ML IV SCH (13:43)
--- NOTE | 2017-03-31 17:46 | PCM.PROG ---
Progress Note - Progress Note for Day of Date: 03/31/17 - Subjective Subjective: PATIENT CONTINUES ON PNEUMONIA PROTOCOL WITH IV ANTIBIOTICS AND AGGRESSIVE NEB TREATMENTS. SPUTUM CULTURE REPORTS KLEBSIELLA PNEUMONIAE WHICH IS SENSITIVE TO FORTAZ. URINE CULTURE REPORTS ENTERCOCCUS FAECALIS WHICH IS SENSITIVE TO VANCOMYCIN. BLOOD PRESSURE IS STABLE THIS MORNING, 138/51, PULSE 64. PATIENT RECEIVES NUTRITION VIA PEG TUBE AND IS RECEIVING TPN. ON AUSCULTATION, LUNGS CONTINUE WITH SCATTERED WHEEZING THROUGHOUT. RENAL FUNCTION CONTINUES TO WORSEN DESPITE INCREASE OF IV FLUIDS. PATIENT HAS NOT HAD A BOWEL MOVEMENT SINCE ADMISSION DESPITE TAKING MILK OF MAGNESIA, MIRALAX, AND COLACE. CBC WNL EXCEPT: WBC 13.5, H/H 9.1/27.4, PLT COUNT 110. CMP WNL EXCEPT: CHL 110 , BUN/CREAT 103/2.83, GFR 17, GLUCOSE 214, ALBUMIN 2.9. CRP 71.60. RENAL US REPORTS BILATERAL FOCAL CORTICAL SCARRING NOTED IN BOTH KIDNEYS. WE WILL CONTINUE AGGRESSIVE PULMONARY TOILETING, INCREASE IV FLUIDS TO 150MLS/HR WHILE MONITORING FOR CHF, ADMINISTER DULCOLAX SUPPOSITORIES, AND FOLLOW UP IN AM WITH LABS AND CHEST XRAY. - Past Medical Family Social History Past Med/Fam/Surg Hx: No changes since H&P Allergies: Allergies Tuberculin Tests Allergy (Verified 06/28/16 07:14) - Review of Systems ROS: No change since H&P - Vital Signs and I&O's Vital Signs: Temperature 98.3 F Pulse Rate [Apical] 76 Pulse Rate 69 Respiratory Rate 18 Blood Pressure [Right Arm] 160/64 Blood Pressure [Left Arm] 90/51 O2 Sat by Pulse Oximetry 99 Intake and Output: Intake & Output 03/29/17 03/30/17 03/31/17 04/01/17 11:59 11:59 11:59 11:59 Intake Total 3487 6482 4890 2250 Output Total 4485 770 7519 450 Balance 2437 5902 3465 1800 - Physical Exam Oriented: Person Eyes: Normal. negative: Discharge, Pain, Redness, Photophobia Ear: Normal. negative: Swelling, Ecchymosis, Hemotypanum, Abrasion, Laceration Nose: Normal. negative: Injected, Discharge, Blood Throat: Dry. negative: Tonsillar Hypertrophy, Exudate Respiratory: Generalized, Wheezes Cardiovascular: Normal. negative: Murmur, Edema : Frequency, Discharge. negative: Hematuria, Bleeding, Auscultation: Bowel Sounds: Decreased. negative: Bruit Palpation: Normal Tenderness: Diffuse, Mild. negative: Rebound, Guarding, Rigidity Skin: Decreased Turgur. negative: Diaphoresis, Wound, Bruising, Ecchymosis Musculoskeletal: Instability (Non-ambulatory) Psychiatric: Normal Mood Description: Calm, Appropriate Affect: Normal Speech Pattern: Unclear - Laboratory and Diagnostics Result Diagrams: 03/31/17 03:27 03/31/17 03:27 Labs: 03/26/17 01:10 Blood Blood Culture - Final 03/26/17 17:52 Sputum - Expectorated Sputum Sputum Culture - Final Klebsiella Pneumoniae 03/26/17 17:52 Sputum - Expectorated Sputum - Final Laboratory WBC 13.5 X10^3/uL (3.6-10.0) H 03/31/17 03:27 RBC 2.99 X10^6/uL (3.5-5.4) L 03/31/17 03:27 Hgb 9.1 g/dL (12.0-16.0) L 03/31/17 03:27 Hct 27.4 % (36.0-47.0) L 03/31/17 03:27 MCV 91.6 fL (80.0-100.0) 03/31/17 03:27 MCH 30.4 pg (27.0-34.0) 03/31/17 03:27 MCHC 33.2 g/dL (33.0-35.0) 03/31/17 03:27 RDW 16.5 % (11.6-16.5) 03/31/17 03:27 Plt Count 110 X10^3/uL (150.0-450.0) L 03/31/17 03:27 Plt Count Comment Decreased (ADEQUATE) A 03/31/17 03:27 MPV 9.5 fL (7.4-11.0) 03/31/17 03:27 Neut % 81.7 % (42.0-75.0) H 03/31/17 03:27 Lymph % 10.5 % (21.0-51.0) L 03/31/17 03:27 [place] % 3.8 % (0.0-13.0) 03/31/17 03:27 Eos % 3.6 % (0.9-2.9) H 03/31/17 03:27 Baso % 0.4 % (0.2-1.0) 03/31/17 03:27 Neut # 11.0 x10^3/uL (2.2-4.8) H 03/31/17 03:27 Lymph # 1.4 X10^3/uL (1.3-2.9) 03/31/17 03:27 [place] # 0.5 x10^3/uL (0.3-0.8) 03/31/17 03:27 Eos # 0.5 x10^3/uL (0.0-0.2) H 03/31/17 03:27 Baso # 0.0 X10^3/uL (0.0-0.1) 03/31/17 03:27 Absolute Nucleated RBC 0.2 /100WBC 03/31/17 03:27 Total Counted 100 03/31/17 03:27 Neutrophils % (Manual) 61 % (39-76) 03/31/17 03:27 Band Neutrophils % 7 % (0-10) 03/31/17 03:27 Lymphocytes % (Manual) 17 % (13-43) 03/31/17 03:27 Monocytes % (Manual) 7 % (4-9) 03/31/17 03:27 Eosinophils % (Manual) 8 % (0-6) H 03/31/17 03:27 Metamyelocytes % 2 03/28/17 03:10 Nucleated RBCs 1 03/29/17 03:40 Plt Morphology Comment Normal (NORMAL) 03/31/17 03:27 RBC Morphology Normal (NORMAL) 03/31/17 03:27 INR Target Range - 03/26/17 07:18 INR 1.38 (0.8-1.3) H 03/26/17 07:18 PTT 28.5 SECONDS (22.9-36.5) 03/26/17 15:00 PTT Comment - 03/26/17 15:00 Sample Site Rfem 03/25/17 22:54 ABG pH 7.310 (7.35-7.45) L 03/25/17 22:54 ABG pCO2 50.0 mmHg (35.0-45.0) H 03/25/17 22:54 ABG pO2 100.0 mmHg (80.0-100.0) 03/25/17 22:54 ABG HCO3 25.2 mmol/L (22-26) 03/25/17 22:54 ABG O2 Saturation 97.0 % (90-100) 03/25/17 22:54 ABG Base Excess -1.6 mmol/L (-2.0-2.0) 03/25/17 22:54 Richard Test N/a 03/25/17 22:54 A-a Gradient 37.0 mmHg 03/25/17 22:54 FiO2 28.000 03/25/17 22:54 Blood Gas Comments Leonila well ae 03/25/17 22:54 Sodium 141 mmol/L (136-145) 03/31/17 03:27 Corrected Sodium 144 mmol/L (136-145) 03/31/17 03:27 Potassium 4.4 mmol/L (3.5-5.1) 03/31/17 03:27 Chloride 110 mmol/L (98-107) H 03/31/17 03:27 Carbon Dioxide 21.9 mmol/L (21-32) 03/31/17 03:27 BUN 103 mg/dL (7-18) H 03/31/17 03:27 Creatinine 2.83 mg/dL (0.55-1.02) H 03/31/17 03:27 Est GFR (MDRD) Af Amer 21 (>60) L 03/31/17 03:27 Est GFR (MDRD) Non-Af 17 (>60) L 03/31/17 03:27 Glucose 214 mg/dL (65-99) H 03/31/17 03:27 Lactic Acid 2.9 mmol/L (0.4-2.0) H 03/26/17 01:10 Calcium 8.5 mg/dL (8.5-10.1) 03/31/17 03:27 Corrected Calcium 9.4 mg/dL (8.5-10.1) 03/31/17 03:27 Magnesium 1.9 mg/dL (1.7-2.9) 03/26/17 07:18 Total Bilirubin 0.40 mg/dL (0.2-1.0) 03/31/17 03:27 AST 24 Units/L (15-37) 03/31/17 03:27 ALT 35 Units/L (12-78) 03/31/17 03:27 Alkaline Phosphatase 102 Units/L (46-116) 03/31/17 03:27 Creatine Kinase 371 Units/L (26-192) H 03/26/17 10:10 CK-MB (CK-2) 4.8 ng/mL (0-4.0) H* 03/26/17 10:10 CK/CKMB % Calc 1.3 % (<4) 03/26/17 10:10 Troponin I 0.09 ng/mL (0-1.5) 03/26/17 10:10 C-Reactive Protein 71.60 mg/L (0-3.0) H 03/31/17 03:27 B-Natriuretic Peptide 718 pg/mL (0-79) H* 03/25/17 16:30 Total Protein 6.7 g/dL (6.4-8.2) 03/31/17 03:27 Albumin 2.9 g/dL (3.4-5.0) L 03/31/17 03:27 Globulin 3.8 g/dL (2.5-4.5) 03/31/17 03:27 Albumin/Globulin Ratio 0.8 Ratio (1.1-2.1) L 03/31/17 03:27 Triglycerides 94 mg/dL (0-150) 03/26/17 07:18 Cholesterol 82 mg/dL (0-200) 03/26/17 07:18 LDL Cholesterol, Calc 15 mg/dL (0-100) 03/26/17 07:18 HDL Cholesterol 48 mg/dL (40-60) 03/26/17 07:18 Cholesterol/HDL Ratio 1.7 (0.0-5.0) 03/26/17 07:18 Amylase 135 Units/L (25-115) H 03/25/17 16:30 Lipase 510 Units/L (73-393) H 03/25/17 16:30 Specimen Type Catherized urine 03/25/17 23:12 Urine Color Yellow (YELLOW) 03/25/17 23:12 Urine Appearance Clear (CLEAR) 03/25/17 23:12 Urine pH 6.5 (5.0 - 8.0) 03/25/17 23:12 Ur Specific [place] 1.010 (1.000-1.030) 03/25/17 23:12 Urine Protein 3+ (NEGATIVE) 03/25/17 23:12 Urine Glucose (UA) Negative (NEGATIVE) 03/25/17 23:12 Urine Ketones Negative (NEGATIVE) 03/25/17 23:12 Urine Occult Blood Negative (NEGATIVE) 03/25/17 23:12 Urine Nitrite Negative (NEGATIVE) 03/25/17 23:12 Urine Bilirubin Negative (NEGATIVE) 03/25/17 23:12 Urine Urobilinogen Normal (NORMAL) 03/25/17 23:12 Ur Leukocyte Esterase 1+ (NEGATIVE) 03/25/17 23:12 Urine RBC None seen /HPF (NEGATIVE) 03/25/17 23:12 Urine WBC 6-8 /HPF (NEGATIVE) 03/25/17 23:12 Ur Squamous Epith Cells Rare /HPF (NEGATIVE) 03/25/17 23:12 Urine Bacteria 1+ /HPF (NEGATIVE) 03/25/17 23:12 Ur Culture Indicated? Yes/culture set up 03/25/17 23:12 Vancomycin Trough 23.8 ug/mL (15-20) H 03/29/17 09:07 - Plan (1) Pneumonia Status: Acute Qualifiers: Pneumonia type: due to Klebsiella pneumoniae Aspiration pneumonia type: A Laterality: right Lung location: lower lobe of lung Qualified Code(s): J15.0 - Pneumonia due to Klebsiella pneumoniae Plan: CONTINUE PNEUMONIA PROTOCOL: IV VANCOMYCIN, IV FORTAZ, AGGRESSIVE NEB TREATMENTS, INCENTIVE SPIROMETER, SUPPLEMENTAL OXYGEN, ROBITUSSIN, MONITOR LABS AND CHEST XRAY. (2) Acute renal failure Status: Acute Qualifiers: Acute renal failure type: A Plan: INCREASE IV FLUIDS TO 150MLS/HR, MONITOR LABS AND CHEST XRAY. (3) Constipation by delayed colonic transit Status: Chronic Plan: ADMINISTER DULCOLAX SUPPOSITORIES, CONTINUE MILK OF MAGNESIA, MIRALAX, AND COLACE, MONITOR. (4) Abdominal pain Status: Acute Qualifiers: Abdominal location: generalized Qualified Code(s): R10.84 - Generalized abdominal pain Plan: CONTINUE IV FLUIDS, PEPCID, PROTONIX, MONITOR. (5) Mental status alteration Status: Acute Qualifiers: Altered mental status type: disorientation Coma depth: C Coma timing: C Qualified Code(s): R41.0 - Disorientation, unspecified Plan: CONTINUE TO MONITOR. (6) Enterococcus UTI Status: Acute Plan: CONTINUE VANCOMYCIN IV, IV FLUIDS, MONITOR (7) UTI (urinary tract infection) Status: Acute Qualifiers: Urinary tract infection type: acute cystitis Hematuria presence: without hematuria Indwelling urinary catheter type: I Encounter type: E Qualified Code(s): N30.00 - Acute cystitis without hematuria Plan: CONTINUE VANCOMYCIN IV, IV FLUIDS, AND MONITOR. (8) CAD (coronary artery disease) Status: Chronic Qualifiers: Coronary Disease-Associated Artery/Lesion type: [place] artery [place] vs. transplanted heart: [place] heart Associated angina: without angina Qualified Code(s): I25.10 - Atherosclerotic heart disease of [place] coronary artery without angina pectoris (9) CHF (congestive heart failure) Status: Chronic Qualifiers: Congestive heart failure type: C Congestive heart failure chronicity: acute on chronic (10) Chronic renal failure Status: Chronic Qualifiers: Chronic kidney disease stage: stage 4 (severe) Qualified Code(s): N18.4 - Chronic kidney disease, stage 4 (severe) (11) Dementia Status: Chronic Qualifiers: Dementia type: vascular dementia Alzheimer's disease onset: A Dementia behavioral disturbance: without behavioral disturbance Qualified Code(s): F01.50 - Vascular dementia without behavioral disturbance (12) Depression Status: Chronic Qualifiers: Depression Type: major depressive disorder Major depression recurrence: recurrent Active/Remission status: currently active Major depression episode severity: moderate Psychotic features: P Trimester: T Qualified Code(s): F33.1 - Major depressive disorder, recurrent, moderate (13) Diabetes mellitus, type 2 Status: Chronic Qualifiers: Diabetes mellitus complication status: with kidney complications Diabetes mellitus complication detail: with chronic kidney disease Diabetic retinopathy severity: D Proliferative retinopathy type: P Diabetes mellitus macular edema: D Diabetes mellitus termite technician insulin use: with termite technician use Laterality: L Chronic kidney disease stage: stage 4 (severe) Qualified Code(s): E11.22 - Type 2 diabetes mellitus with diabetic chronic kidney disease (14) Dysphagia as late effect of cerebrovascular accident (CVA) Status: Chronic (15) Essential hypertension Status: Chronic (16) GERD (gastroesophageal reflux disease) Status: Chronic Qualifiers: Esophagitis presence: esophagitis presence not specified Qualified Code(s) : K21.9 - Gastro-esophageal reflux disease without esophagitis (17) History of CVA (cerebrovascular accident) Status: Chronic (18) Hyperlipidemia Status: Chronic Qualifiers: Hyperlipidemia type: mixed hyperlipidemia Qualified Code(s): E78.2 - Mixed hyperlipidemia (19) Pacemaker Status: Chronic (20) S/P percutaneous endoscopic gastrostomy (PEG) tube placement Status: Acute (21) Hypotension Status: Resolved Qualifiers: Hypotension type: other hypotension type Trimester: T Qualified Code(s): I95.89 - Other hypotension Plan: INCREASE IVF, MONITOR ON LOCUM TENENS HOSPITALIST VITAL SIGNS, SUPPLEMENTAL OXYGEN, MONITOR BLOOD PRESSURE EVERY HOUR. (22) Chest pain Status: Resolved Qualifiers: Chest pain type: precordial pain Ischemic chest pain type: I Qualified Code(s): R07.2 - Precordial pain Plan: MONITOR ON TELEMETRY, MONITOR VITAL SIGNS, SUPPLEMENTAL OXYGEN.
[2017-03-31] MEDS: XALATAN LEFTEYE SCH (21:17)
[2017-03-31] MEDS: LIPOSYN III 20% 250ML 250 ML IV SCH (21:17)
[2017-04-01] MEDS: DUONEB 0.5 MG/3 MG NEB SCH ×6 (01:00→21:35)
[2017-04-01 04:44] LABS: ALBUMIN 2.8 g/dL (3.4-5.0); C-REACTIVE PROTEIN 71.7 mg/L (0-3.0); CALCIUM 8.3 mg/dL (8.5-10.1); CARBON DIOXIDE 23.9 mmol/L (21-32); COR CA(FOR HYPOALB) 9.3 mg/dL (8.5-10.1); CREATININE 2.68 mg/dL (0.55-1.02); TOTAL PROTEIN 6.1 g/dL (6.4-8.2)
[2017-04-01 04:45] LABS: BASOPHILS # (AUTO) 0.1 X10^3/uL (0.0-0.1); BASOPHILS % (AUTO) 0.5 % (0.2-1.0); EOSINOPHILS # (AUTO) 0.4 x10^3/uL (0.0-0.2); EOSINOPHILS % (AUTO) 2.6 % (0.9-2.9); HEMATOCRIT 24.8 % (36.0-47.0); LYMPHOCYTES % (AUTO) 7.1 % (21.0-51.0); MEAN CORPUSCULAR HEMOGLOBIN 29.6 pg (27.0-34.0); MEAN CORPUSCULAR HGB CONC 32.3 g/dL (33.0-35.0); MEAN CORPUSCULAR VOLUME 91.4 fL (80.0-100.0); MEAN PLATELET VOLUME 9.7 fL (7.4-11.0); MONOCYTES # (AUTO) 1.5 x10^3/uL (0.3-0.8); MONOCYTES % (AUTO) 10.6 % (0.0-13.0); NEUTROPHILS # (AUTO) 11.3 x10^3/uL (2.2-4.8); NEUTROPHILS % (AUTO) 79.2 % (42.0-75.0); PLATELET COUNT 97 X10^3/uL (150.0-450.0); RED BLOOD COUNT 2.71 X10^6/uL (3.5-5.4); RED CELL DISTRIBUTION WIDTH 16.4 % (11.6-16.5); WHITE BLOOD COUNT 14.2 X10^3/uL (3.6-10.0)
[2017-04-01] MEDS: CLINIMIX IV SCH ×15 (04:53→23:15)
[2017-04-01] MEDS: MVI IV SCH ×15 (04:53→23:15)
[2017-04-01] MEDS: [UNRECOGNIZED DRUG - OTHER] IV SCH ×15 (04:53→23:15)
[2017-04-01] MEDS: TRACE ELEMENTS IV SCH ×15 (04:53→23:15)
[2017-04-01] MEDS: ALPHAGAN P 0.15% OPHTH SOLN LEFTEYE SCH ×3 (05:31→21:49)
[2017-04-01] MEDS: HumuLIN R SUBCUT PRN ×2 (05:54→12:15)
[2017-04-01 06:13] LABS: BAND NEUTROPHILS % 11 % (0-10); METAMYELOCYTES % 2; PLATELET MORPHOLOGY COMMENT NORMAL (NORMAL)
--- NOTE | 2017-04-01 06:45 | RAD ---
HISTORY: Shortness of breath, urticaria Study: Chest one view Comparison: March 31, 2017, March 30, 2017 Findings: There is a port present on the right. There is a pacemaker present on the left partially obscuring t he lateral aspect of the left lung apex. The heart is enlarged. No congestive heart failure is noted . No acute alveolar infiltrates or pleural effusions are present. The bony thorax is unremarkable. IMPRESSION: Cardiomegaly without congestive heart failure No infiltrates Reported By:
[2017-04-01] MEDS: ROBITUSSIN DM PEG SCH ×4 (08:22→21:47)
[2017-04-01] MEDS: PROTONIX INJ 40 MG VIAL IVP SCH (08:22)
[2017-04-01] MEDS: MILK OF MAGNESIA PO SCH ×4 (08:22→21:46)
[2017-04-01] MEDS: CELEXA PEG SCH (08:23)
[2017-04-01] MEDS: PLAVIX PEG SCH (08:23)
[2017-04-01] MEDS: VANCOMYCIN HCL 500 MG VIAL 750 MG in NS 250 ML IV 250 ML IV SCH ×2 (08:23→08:51)
[2017-04-01] MEDS: LIPITOR TAB 20 MG PEG SCH (08:23)
[2017-04-01] MEDS: MIRALAX POWDER (1 DOSE 17GM) PO SCH (08:25)
[2017-04-01] MEDS: COSOPT OPTH LEFTEYE SCH ×2 (08:26→21:45)
[2017-04-01] MEDS: ALBUMIN HUMAN 25%- 100ML 100 ML IV SCH (08:27)
[2017-04-01] MEDS: ARTIFICIAL TEARS DROPS EACHEYE SCH ×2 (08:27→21:45)
[2017-04-01] MEDS: COLACE SYRUP 100 MG UDC PO SCH ×2 (08:44→21:59)
[2017-04-01] MEDS: FORTAZ or TAZICEF INJ 1 GM in NS 50 ML IV + SPIKE MINIBAG* 50 ML IV SCH (12:43)
--- NOTE | 2017-04-01 12:55 | PCM.PROG ---
Progress Note - Progress Note for Day of Date: 04/01/17 - Subjective Subjective: PATIENT IS RESTING IN BED ON MORNING ROUNDS. PATIENT CONTINUES ON PNEUMONIA PROTOCOL WITH IV ANTIBIOTICS AND AGGRESSIVE NEB TREATMENTS. BLOOD PRESSURE IS STABLE THIS MORNING, 145/46, PULSE 61. PATIENT RECEIVES NUTRITION VIA PEG TUBE AND IS RECEIVING TPN. ON AUSCULTATION, LUNGS CONTINUE WITH SCATTERED WHEEZING THROUGHOUT. RENAL FUNCTION CONTINUES TO WORSEN. STAFF REPORTS THAT PATIENT HAD A LARGE BOWEL MOVEMENT YESTERDAY. CBC WNL EXCEPT: WBC 14.2, H/H 8.0/24.8, PLT COUNT 97. CMP WNL EXCEPT: CHL 112, BUN/CREAT 105/2.68, GFR 19, GLUCOSE 207, ALBUMIN 2.8. CRP 71.70.WE WILL CONTINUE AGGRESSIVE PULMONARY TOILETING, CONTINUE IV FLUIDS AT 150MLS/HR WHILE MONITORING FOR CHF, AND FOLLOW UP IN AM WITH LABS AND CHEST XRAY. - Past Medical Family Social History Past Med/Fam/Surg Hx: No changes since H&P Allergies: Allergies Tuberculin Tests Allergy (Verified 06/28/16 07:14) - Review of Systems ROS: No change since H&P - Vital Signs and I&O's Vital Signs: Temperature 98.0 F Pulse Rate [Apical] 66 Pulse Rate 65 Respiratory Rate 28 Blood Pressure [Right Arm] 131/57 Blood Pressure [Left Arm] 90/51 O2 Sat by Pulse Oximetry 99 Intake and Output: Intake & Output 03/30/17 03/31/17 04/01/17 04/02/17 11:59 11:59 11:59 11:59 Intake Total 6482 4890 4942 Output Total 580 1425 1076 Balance 5902 1345 0176 - Physical Exam Oriented: Person Eyes: Normal. negative: Discharge, Pain, Redness, Photophobia Ear: Normal. negative: Swelling, Ecchymosis, Hemotypanum, Abrasion, Laceration Nose: Normal. negative: Injected, Discharge, Blood Throat: Dry. negative: Tonsillar Hypertrophy, Exudate Respiratory: Generalized, Wheezes Cardiovascular: Normal. negative: Murmur, Edema : Frequency, Discharge. negative: Hematuria, Bleeding, Auscultation: Bowel Sounds: Decreased. negative: Bruit Palpation: Normal. negative: Spleen Enlarged, Liver Enlarged, Mass Pulsatile Tenderness: Diffuse, Mild. negative: Rebound, Guarding, Rigidity Skin: Decreased Turgur. negative: Diaphoresis, Wound, Bruising, Ecchymosis Musculoskeletal: Instability (Non-ambulatory) Psychiatric: Normal Mood Description: Calm, Appropriate Affect: Normal Speech Pattern: Clear, Delayed - Laboratory and Diagnostics Result Diagrams: 04/01/17 03:20 04/01/17 03:20 Labs: 03/26/17 01:10 Blood Blood Culture - Final 03/26/17 17:52 Sputum - Expectorated Sputum Sputum Culture - Final Klebsiella Pneumoniae 03/26/17 17:52 Sputum - Expectorated Sputum - Final Laboratory WBC 14.2 X10^3/uL (3.6-10.0) H 04/01/17 03:20 RBC 2.71 X10^6/uL (3.5-5.4) L 04/01/17 03:20 Hgb 8.0 g/dL (12.0-16.0) L 04/01/17 03:20 Hct 24.8 % (36.0-47.0) L 04/01/17 03:20 MCV 91.4 fL (80.0-100.0) 04/01/17 03:20 MCH 29.6 pg (27.0-34.0) 04/01/17 03:20 MCHC 32.3 g/dL (33.0-35.0) L 04/01/17 03:20 RDW 16.4 % (11.6-16.5) 04/01/17 03:20 Plt Count 97 X10^3/uL (150.0-450.0) L 04/01/17 03:20 Plt Count Comment Decreased (ADEQUATE) A 04/01/17 03:20 MPV 9.7 fL (7.4-11.0) 04/01/17 03:20 Neut % 79.2 % (42.0-75.0) H 04/01/17 03:20 Lymph % 7.1 % (21.0-51.0) L 04/01/17 03:20 [place] % 10.6 % (0.0-13.0) 04/01/17 03:20 Eos % 2.6 % (0.9-2.9) 04/01/17 03:20 Baso % 0.5 % (0.2-1.0) 04/01/17 03:20 Neut # 11.3 x10^3/uL (2.2-4.8) H 04/01/17 03:20 Lymph # 1.0 X10^3/uL (1.3-2.9) L 04/01/17 03:20 [place] # 1.5 x10^3/uL (0.3-0.8) H 04/01/17 03:20 Eos # 0.4 x10^3/uL (0.0-0.2) H 04/01/17 03:20 Baso # 0.1 X10^3/uL (0.0-0.1) 04/01/17 03:20 Absolute Nucleated RBC 0.2 /100WBC 04/01/17 03:20 Total Counted 100 04/01/17 03:20 Neutrophils % (Manual) 63 % (39-76) 04/01/17 03:20 Band Neutrophils % 11 % (0-10) H 04/01/17 03:20 Lymphocytes % (Manual) 16 % (13-43) 04/01/17 03:20 Monocytes % (Manual) 4 % (4-9) 04/01/17 03:20 Eosinophils % (Manual) 4 % (0-6) 04/01/17 03:20 Metamyelocytes % 2 04/01/17 03:20 Nucleated RBCs 1 03/29/17 03:40 Plt Morphology Comment Normal (NORMAL) 04/01/17 03:20 RBC Morphology Normal (NORMAL) 04/01/17 03:20 INR Target Range - 03/26/17 07:18 INR 1.38 (0.8-1.3) H 03/26/17 07:18 PTT 28.5 SECONDS (22.9-36.5) 03/26/17 15:00 PTT Comment - 03/26/17 15:00 Sample Site Rfem 03/25/17 22:54 ABG pH 7.310 (7.35-7.45) L 03/25/17 22:54 ABG pCO2 50.0 mmHg (35.0-45.0) H 03/25/17 22:54 ABG pO2 100.0 mmHg (80.0-100.0) 03/25/17 22:54 ABG HCO3 25.2 mmol/L (22-26) 03/25/17 22:54 ABG O2 Saturation 97.0 % (90-100) 03/25/17 22:54 ABG Base Excess -1.6 mmol/L (-2.0-2.0) 03/25/17 22:54 Richard Test N/a 03/25/17 22:54 A-a Gradient 37.0 mmHg 03/25/17 22:54 FiO2 28.000 03/25/17 22:54 Blood Gas Comments Leonila well ae 03/25/17 22:54 Sodium 143 mmol/L (136-145) 04/01/17 03:20 Corrected Sodium 146 mmol/L (136-145) H 04/01/17 03:20 Potassium 4.4 mmol/L (3.5-5.1) 04/01/17 03:20 Chloride 112 mmol/L (98-107) H 04/01/17 03:20 Carbon Dioxide 23.9 mmol/L (21-32) 04/01/17 03:20 BUN 105 mg/dL (7-18) H 04/01/17 03:20 Creatinine 2.68 mg/dL (0.55-1.02) H 04/01/17 03:20 Est GFR (MDRD) Af Amer 22 (>60) L 04/01/17 03:20 Est GFR (MDRD) Non-Af 19 (>60) L 04/01/17 03:20 Glucose 207 mg/dL (65-99) H 04/01/17 03:20 Lactic Acid 2.9 mmol/L (0.4-2.0) H 03/26/17 01:10 Calcium 8.3 mg/dL (8.5-10.1) L 04/01/17 03:20 Corrected Calcium 9.3 mg/dL (8.5-10.1) 04/01/17 03:20 Magnesium 1.9 mg/dL (1.7-2.9) 03/26/17 07:18 Total Bilirubin 0.50 mg/dL (0.2-1.0) 04/01/17 03:20 AST 17 Units/L (15-37) 04/01/17 03:20 ALT 26 Units/L (12-78) 04/01/17 03:20 Alkaline Phosphatase 78 Units/L (46-116) 04/01/17 03:20 Creatine Kinase 371 Units/L (26-192) H 03/26/17 10:10 CK-MB (CK-2) 4.8 ng/mL (0-4.0) H* 03/26/17 10:10 CK/CKMB % Calc 1.3 % (<4) 03/26/17 10:10 Troponin I 0.09 ng/mL (0-1.5) 03/26/17 10:10 C-Reactive Protein 71.70 mg/L (0-3.0) H 04/01/17 03:20 B-Natriuretic Peptide 718 pg/mL (0-79) H* 03/25/17 16:30 Total Protein 6.1 g/dL (6.4-8.2) L 04/01/17 03:20 Albumin 2.8 g/dL (3.4-5.0) L 04/01/17 03:20 Globulin 3.3 g/dL (2.5-4.5) 04/01/17 03:20 Albumin/Globulin Ratio 0.8 Ratio (1.1-2.1) L 04/01/17 03:20 Triglycerides 94 mg/dL (0-150) 03/26/17 07:18 Cholesterol 82 mg/dL (0-200) 03/26/17 07:18 LDL Cholesterol, Calc 15 mg/dL (0-100) 03/26/17 07:18 HDL Cholesterol 48 mg/dL (40-60) 03/26/17 07:18 Cholesterol/HDL Ratio 1.7 (0.0-5.0) 03/26/17 07:18 Amylase 135 Units/L (25-115) H 03/25/17 16:30 Lipase 510 Units/L (73-393) H 03/25/17 16:30 Specimen Type Catherized urine 03/25/17 23:12 Urine Color Yellow (YELLOW) 03/25/17 23:12 Urine Appearance Clear (CLEAR) 03/25/17 23:12 Urine pH 6.5 (5.0 - 8.0) 03/25/17 23:12 Ur Specific [place] 1.010 (1.000-1.030) 03/25/17 23:12 Urine Protein 3+ (NEGATIVE) 03/25/17 23:12 Urine Glucose (UA) Negative (NEGATIVE) 03/25/17 23:12 Urine Ketones Negative (NEGATIVE) 03/25/17 23:12 Urine Occult Blood Negative (NEGATIVE) 03/25/17 23:12 Urine Nitrite Negative (NEGATIVE) 03/25/17 23:12 Urine Bilirubin Negative (NEGATIVE) 03/25/17 23:12 Urine Urobilinogen Normal (NORMAL) 03/25/17 23:12 Ur Leukocyte Esterase 1+ (NEGATIVE) 03/25/17 23:12 Urine RBC None seen /HPF (NEGATIVE) 03/25/17 23:12 Urine WBC 6-8 /HPF (NEGATIVE) 03/25/17 23:12 Ur Squamous Epith Cells Rare /HPF (NEGATIVE) 03/25/17 23:12 Urine Bacteria 1+ /HPF (NEGATIVE) 03/25/17 23:12 Ur Culture Indicated? Yes/culture set up 03/25/17 23:12 Vancomycin Trough 23.8 ug/mL (15-20) H 03/29/17 09:07 - Plan (1) Pneumonia Status: Acute Qualifiers: Pneumonia type: due to Klebsiella pneumoniae Aspiration pneumonia type: A Laterality: right Lung location: lower lobe of lung Qualified Code(s): J15.0 - Pneumonia due to Klebsiella pneumoniae Plan: CONTINUE PNEUMONIA PROTOCOL: IV VANCOMYCIN, IV FORTAZ, AGGRESSIVE NEB TREATMENTS, INCENTIVE SPIROMETER, SUPPLEMENTAL OXYGEN, ROBITUSSIN, MONITOR LABS AND CHEST XRAY. (2) Acute renal failure Status: Acute Qualifiers: Acute renal failure type: A Plan: CONTINUE IV FLUIDS AT 150MLS/HR, MONITOR LABS AND CHEST XRAY. (3) Constipation by delayed colonic transit Status: Chronic Plan: CONTINUE MILK OF MAGNESIA, MIRALAX, AND COLACE, MONITOR. (4) Abdominal pain Status: Acute Qualifiers: Abdominal location: generalized Qualified Code(s): R10.84 - Generalized abdominal pain Plan: CONTINUE IV FLUIDS, PEPCID, PROTONIX, MONITOR. (5) Mental status alteration Status: Acute Qualifiers: Altered mental status type: disorientation Coma depth: C Coma timing: C Qualified Code(s): R41.0 - Disorientation, unspecified Plan: CONTINUE TO MONITOR. (6) Enterococcus UTI Status: Acute Plan: CONTINUE VANCOMYCIN IV, IV FLUIDS, MONITOR (7) UTI (urinary tract infection) Status: Acute Qualifiers: Urinary tract infection type: acute cystitis Hematuria presence: without hematuria Indwelling urinary catheter type: I Encounter type: E Qualified Code(s): N30.00 - Acute cystitis without hematuria Plan: CONTINUE VANCOMYCIN IV, IV FLUIDS, AND MONITOR. (8) CAD (coronary artery disease) Status: Chronic Qualifiers: Coronary Disease-Associated Artery/Lesion type: [place] artery [place] vs. transplanted heart: [place] heart Associated angina: without angina Qualified Code(s): I25.10 - Atherosclerotic heart disease of [place] coronary artery without angina pectoris (9) CHF (congestive heart failure) Status: Chronic Qualifiers: Congestive heart failure type: C Congestive heart failure chronicity: acute on chronic (10) Chronic renal failure Status: Chronic Qualifiers: Chronic kidney disease stage: stage 4 (severe) Qualified Code(s): N18.4 - Chronic kidney disease, stage 4 (severe) (11) Dementia Status: Chronic Qualifiers: Dementia type: vascular dementia Alzheimer's disease onset: A Dementia behavioral disturbance: without behavioral disturbance Qualified Code(s): F01.50 - Vascular dementia without behavioral disturbance (12) Depression Status: Chronic Qualifiers: Depression Type: major depressive disorder Major depression recurrence: recurrent Active/Remission status: currently active Major depression episode severity: moderate Psychotic features: P Trimester: T Qualified Code(s): F33.1 - Major depressive disorder, recurrent, moderate (13) Diabetes mellitus, type 2 Status: Chronic Qualifiers: Diabetes mellitus complication status: with kidney complications Diabetes mellitus complication detail: with chronic kidney disease Diabetic retinopathy severity: D Proliferative retinopathy type: P Diabetes mellitus macular edema: D Diabetes mellitus intermediate project manager insulin use: with alf use Laterality: L Chronic kidney disease stage: stage 4 (severe) Qualified Code(s): E11.22 - Type 2 diabetes mellitus with diabetic chronic kidney disease (14) Dysphagia as late effect of cerebrovascular accident (CVA) Status: Chronic (15) Essential hypertension Status: Chronic (16) GERD (gastroesophageal reflux disease) Status: Chronic Qualifiers: Esophagitis presence: esophagitis presence not specified Qualified Code(s) : K21.9 - Gastro-esophageal reflux disease without esophagitis (17) History of CVA (cerebrovascular accident) Status: Chronic (18) Hyperlipidemia Status: Chronic Qualifiers: Hyperlipidemia type: mixed hyperlipidemia Qualified Code(s): E78.2 - Mixed hyperlipidemia (19) Pacemaker Status: Chronic (20) S/P percutaneous endoscopic gastrostomy (PEG) tube placement Status: Acute (21) Hypotension Status: Resolved Qualifiers: Hypotension type: other hypotension type Trimester: T Qualified Code(s): I95.89 - Other hypotension Plan: CONTINUE IVF, MONITOR ON SAL[employer] VITAL SIGNS, SUPPLEMENTAL OXYGEN, MONITOR BLOOD PRESSURE EVERY HOUR. (22) Chest pain Status: Resolved Qualifiers: Chest pain type: precordial pain Ischemic chest pain type: I Qualified Code(s): R07.2 - Precordial pain Plan: MONITOR ON TELEMETRY, MONITOR VITAL SIGNS, SUPPLEMENTAL OXYGEN.
[2017-04-01] MEDS: NS 1000 ML 1,000 ML IV SCH ×2 (16:54)
[2017-04-01] MEDS: XALATAN LEFTEYE SCH (21:48)
[2017-04-01] MEDS: LIPOSYN III 20% 250ML 250 ML IV SCH (23:14)
[2017-04-02] MEDS: DUONEB 0.5 MG/3 MG NEB SCH ×6 (01:08→21:28)
[2017-04-02 05:45] LABS: ALBUMIN 2.9 g/dL (3.4-5.0); CALCIUM 8.5 mg/dL (8.5-10.1); CARBON DIOXIDE 17.7 mmol/L (21-32); COR CA(FOR HYPOALB) 9.4 mg/dL (8.5-10.1); CREATININE 2.53 mg/dL (0.55-1.02); TOTAL PROTEIN 6.8 g/dL (6.4-8.2)
[2017-04-02] MEDS: HumuLIN R SUBCUT PRN (06:14)
[2017-04-02 06:16] LABS: BASOPHILS # (AUTO) 0.1 X10^3/uL (0.0-0.1); BASOPHILS % (AUTO) 0.5 % (0.2-1.0); EOSINOPHILS # (AUTO) 0.5 x10^3/uL (0.0-0.2); HEMATOCRIT 25.4 % (36.0-47.0); HEMOGLOBIN 8.1 g/dL (12.0-16.0); LYMPHOCYTES # (AUTO) 1.3 X10^3/uL (1.3-2.9); MEAN CORPUSCULAR HEMOGLOBIN 29.3 pg (27.0-34.0); MEAN CORPUSCULAR HGB CONC 31.9 g/dL (33.0-35.0); MEAN CORPUSCULAR VOLUME 91.8 fL (80.0-100.0); MEAN PLATELET VOLUME 9.6 fL (7.4-11.0); MONOCYTES # (AUTO) 2.4 x10^3/uL (0.3-0.8); MONOCYTES % (AUTO) 14.2 % (0.0-13.0); NEUTROPHILS # (AUTO) 12.6 x10^3/uL (2.2-4.8); NEUTROPHILS % (AUTO) 74.3 % (42.0-75.0); PLATELET COUNT 117 X10^3/uL (150.0-450.0); RED BLOOD COUNT 2.76 X10^6/uL (3.5-5.4); RED CELL DISTRIBUTION WIDTH 16.5 % (11.6-16.5); WHITE BLOOD COUNT 16.9 X10^3/uL (3.6-10.0)
[2017-04-02] MEDS: NS 1000 ML 1,000 ML IV SCH (06:39)
[2017-04-02] MEDS: ALPHAGAN P 0.15% OPHTH SOLN LEFTEYE SCH ×2 (06:39→21:00)
--- NOTE | 2017-04-02 06:54 | RAD ---
HISTORY: Chest pain Study: Chest one view Comparison: April 01, 2017 Findings: Positioning is less than optimal with significant rightward rotation. A portion of the lateral right lung base is not included on the image. There is a pacemaker present on the left obscuring a portio n of the left upper lobe. The heart is enlarged. No congestive heart failure is noted. No definite i nfiltrates or pleural effusions are identified. The bony thorax appears intact. IMPRESSION: Cardiomegaly without congestive heart failure No definite infiltrates Reported By:
[2017-04-02 06:57] LABS: BAND NEUTROPHILS % 6 % (0-10); HYPOCHROMASIA SLIGHT; METAMYELOCYTES % 6; PLATELET MORPHOLOGY COMMENT NORMAL (NORMAL)
[2017-04-02] MEDS ORDERED: FORTAZ or TAZICEF INJ 1 GM in NS 50 ML IV + SPIKE MINIBAG* 50 ML IV SCH (09:00)
[2017-04-02 09:31] LABS: CREATININE 2.51 mg/dL (0.55-1.02); VANCOMYCIN,TROUGH 27.4 ug/mL (15-20)
[2017-04-02] MEDS: MIRALAX POWDER (1 DOSE 17GM) PO SCH (11:05)
[2017-04-02] MEDS: MILK OF MAGNESIA PO SCH ×2 (11:05→13:34)
[2017-04-02] MEDS: ROBITUSSIN DM PEG SCH (11:06)
[2017-04-02] MEDS: ARTIFICIAL TEARS DROPS EACHEYE SCH ×2 (11:07→21:00)
[2017-04-02] MEDS: COSOPT OPTH LEFTEYE SCH (11:07)
[2017-04-02] MEDS: PLAVIX PEG SCH (11:08)
[2017-04-02] MEDS: LIPITOR TAB 20 MG PEG SCH (11:08)
[2017-04-02] MEDS: CELEXA PEG SCH (11:09)
[2017-04-02] MEDS: PROTONIX INJ 40 MG VIAL IVP SCH (11:09)
[2017-04-02] MEDS: ALBUMIN HUMAN 25%- 100ML 100 ML IV SCH (11:10)
[2017-04-02] MEDS: COLACE SYRUP 100 MG UDC PO SCH (11:14)
--- NOTE | 2017-04-02 11:20 | PCM.PROG ---
Progress Note - Progress Note for Day of Date: 04/02/17 - Subjective Subjective: PATIENT CONTINUES ON PNEUMONIA PROTOCOL WITH IV ANTIBIOTICS AND AGGRESSIVE NEB TREATMENTS. MULTIPLE FAMILY MEMBERS AT BEDSIDE THIS MORNING TO DISCUSS PATIENT'S CONDITION. WE DISCUSS PATIENT'S DETIORATION AND RENAL FUNCTION. WE DISCUSS DIALYSIS AND RESUSCITATIVE MEASURES. FAMILY VOICES THEY WOULD LIKE COMFORT MEASURES AND FOR PATIENT TO NOT BE IN PAIN. BLOOD PRESSURE IS STABLE THIS MORNING, 135/60, PULSE 74. PATIENT RECEIVES NUTRITION VIA PEG TUBE AND IS RECEIVING TPN. ON AUSCULTATION, LUNGS WITH SCATTERED WHEEZING AND RALES THROUGHOUT. RENAL FUNCTION CONTINUES TO WORSEN DESPITE AGGRESSIVE IV HYDRATION. CBC WNL EXCEPT: WBC 16.9, H/H 8.1/25.4, PLT COUNT 117. CMP WNL EXCEPT: CHL 112, BUN/CREAT 109/2.53, GFR 20, GLUCOSE 181, ALBUMIN 2.9. CRP 71.60. WE WILL START COMFORT MEASURES TODAY, CHANGE PATIENT'S STATUS TO FLOOR, AND MONITOR FOR COMFORT. - Past Medical Family Social History Past Med/Fam/Surg Hx: No changes since H&P Allergies: Allergies Tuberculin Tests Allergy (Verified 06/28/16 07:14) - Review of Systems ROS: No change since H&P - Vital Signs and I&O's Vital Signs: Temperature 98.8 F Pulse Rate [Apical] 74 Pulse Rate 71 Respiratory Rate 19 Blood Pressure [Right Arm] 135/60 Blood Pressure [Left Arm] 90/51 O2 Sat by Pulse Oximetry 100 Intake and Output: Intake & Output 03/30/17 03/31/17 04/01/17 04/02/17 11:59 11:59 11:59 11:59 Intake Total 6482 4890 4942 3069 Output Total 580 1425 1076 1650 Balance 5902 3465 5816 1179 - Physical Exam Oriented: Not Oriented Eyes: Normal. negative: Discharge, Pain, Redness, Photophobia Ear: Normal. negative: Swelling, Ecchymosis, Hemotypanum, Abrasion, Laceration Nose: Normal. negative: Injected, Discharge, Blood Throat: Dry. negative: Tonsillar Hypertrophy, Exudate Respiratory: Generalized, Wheezes, Rales Cardiovascular: Normal. negative: Murmur, Edema : Frequency, Discharge. negative: Hematuria, Bleeding, Auscultation: Bowel Sounds: Decreased. negative: Bruit Palpation: Normal. negative: Spleen Enlarged, Liver Enlarged, Mass Pulsatile Tenderness: Diffuse, Mild. negative: Rebound, Guarding, Rigidity Skin: Decreased Turgur. negative: Diaphoresis, Wound, Bruising, Ecchymosis Musculoskeletal: Instability (Non-ambulatory) Psychiatric: Normal Mood Description: Calm, Appropriate Affect: Normal Speech Pattern: Delayed - Laboratory and Diagnostics Result Diagrams: 04/02/17 03:28 04/02/17 09:05 Labs: 03/26/17 01:10 Blood Blood Culture - Final 03/26/17 17:52 Sputum - Expectorated Sputum Sputum Culture - Final Klebsiella Pneumoniae 03/26/17 17:52 Sputum - Expectorated Sputum - Final Laboratory WBC 16.9 X10^3/uL (3.6-10.0) H 04/02/17 03:28 RBC 2.76 X10^6/uL (3.5-5.4) L 04/02/17 03:28 Hgb 8.1 g/dL (12.0-16.0) L 04/02/17 03:28 Hct 25.4 % (36.0-47.0) L 04/02/17 03:28 MCV 91.8 fL (80.0-100.0) 04/02/17 03:28 MCH 29.3 pg (27.0-34.0) 04/02/17 03:28 MCHC 31.9 g/dL (33.0-35.0) L 04/02/17 03:28 RDW 16.5 % (11.6-16.5) 04/02/17 03:28 Plt Count 117 X10^3/uL (150.0-450.0) L 04/02/17 03:28 Plt Count Comment Decreased (ADEQUATE) A 04/02/17 03:28 MPV 9.6 fL (7.4-11.0) 04/02/17 03:28 Neut % 74.3 % (42.0-75.0) 04/02/17 03:28 Lymph % 8.0 % (21.0-51.0) L 04/02/17 03:28 [place] % 14.2 % (0.0-13.0) H 04/02/17 03:28 Eos % 3.0 % (0.9-2.9) H 04/02/17 03:28 Baso % 0.5 % (0.2-1.0) 04/02/17 03:28 Neut # 12.6 x10^3/uL (2.2-4.8) H 04/02/17 03:28 Lymph # 1.3 X10^3/uL (1.3-2.9) 04/02/17 03:28 [place] # 2.4 x10^3/uL (0.3-0.8) H 04/02/17 03:28 Eos # 0.5 x10^3/uL (0.0-0.2) H 04/02/17 03:28 Baso # 0.1 X10^3/uL (0.0-0.1) 04/02/17 03:28 Absolute Nucleated RBC 0.1 /100WBC 04/02/17 03:28 Total Counted 100 04/02/17 03:28 Neutrophils % (Manual) 75 % (39-76) 04/02/17 03:28 Band Neutrophils % 6 % (0-10) 04/02/17 03:28 Lymphocytes % (Manual) 10 % (13-43) L 04/02/17 03:28 Monocytes % (Manual) 3 % (4-9) L 04/02/17 03:28 Eosinophils % (Manual) 4 % (0-6) 04/01/17 03:20 Metamyelocytes % 6 04/02/17 03:28 Nucleated RBCs 1 03/29/17 03:40 Atypical Lymphocytes Noted 04/02/17 03:28 Plt Morphology Comment Normal (NORMAL) 04/02/17 03:28 RBC Morphology Abnormal (NORMAL) A 04/02/17 03:28 Hypochromasia Slight A 04/02/17 03:28 INR Target Range - 03/26/17 07:18 INR 1.38 (0.8-1.3) H 03/26/17 07:18 PTT 28.5 SECONDS (22.9-36.5) 03/26/17 15:00 PTT Comment - 03/26/17 15:00 Sample Site Rfem 03/25/17 22:54 ABG pH 7.310 (7.35-7.45) L 03/25/17 22:54 ABG pCO2 50.0 mmHg (35.0-45.0) H 03/25/17 22:54 ABG pO2 100.0 mmHg (80.0-100.0) 03/25/17 22:54 ABG HCO3 25.2 mmol/L (22-26) 03/25/17 22:54 ABG O2 Saturation 97.0 % (90-100) 03/25/17 22:54 ABG Base Excess -1.6 mmol/L (-2.0-2.0) 03/25/17 22:54 Richard Test N/a 03/25/17 22:54 A-a Gradient 37.0 mmHg 03/25/17 22:54 FiO2 28.000 03/25/17 22:54 Blood Gas Comments Leonila well ae 03/25/17 22:54 Sodium 141 mmol/L (136-145) 04/02/17 03:28 Corrected Sodium 143 mmol/L (136-145) 04/02/17 03:28 Potassium 4.7 mmol/L (3.5-5.1) 04/02/17 03:28 Chloride 112 mmol/L (98-107) H 04/02/17 03:28 Carbon Dioxide 17.7 mmol/L (21-32) L 04/02/17 03:28 BUN 109 mg/dL (7-18) H 04/02/17 03:28 Creatinine 2.51 mg/dL (0.55-1.02) H 04/02/17 09:05 Est GFR (MDRD) Af Amer 24 (>60) L 04/02/17 03:28 Est GFR (MDRD) Non-Af 20 (>60) L 04/02/17 03:28 Glucose 181 mg/dL (65-99) H 04/02/17 03:28 Lactic Acid 2.9 mmol/L (0.4-2.0) H 03/26/17 01:10 Calcium 8.5 mg/dL (8.5-10.1) 04/02/17 03:28 Corrected Calcium 9.4 mg/dL (8.5-10.1) 04/02/17 03:28 Magnesium 1.9 mg/dL (1.7-2.9) 03/26/17 07:18 Total Bilirubin 0.60 mg/dL (0.2-1.0) 04/02/17 03:28 AST 22 Units/L (15-37) 04/02/17 03:28 ALT 20 Units/L (12-78) 04/02/17 03:28 Alkaline Phosphatase 97 Units/L (46-116) 04/02/17 03:28 Creatine Kinase 371 Units/L (26-192) H 03/26/17 10:10 CK-MB (CK-2) 4.8 ng/mL (0-4.0) H* 03/26/17 10:10 CK/CKMB % Calc 1.3 % (<4) 03/26/17 10:10 Troponin I 0.09 ng/mL (0-1.5) 03/26/17 10:10 C-Reactive Protein 71.60 mg/L (0-3.0) H 04/02/17 03:28 B-Natriuretic Peptide 718 pg/mL (0-79) H* 03/25/17 16:30 Total Protein 6.8 g/dL (6.4-8.2) 04/02/17 03:28 Albumin 2.9 g/dL (3.4-5.0) L 04/02/17 03:28 Globulin 3.9 g/dL (2.5-4.5) 04/02/17 03:28 Albumin/Globulin Ratio 0.7 Ratio (1.1-2.1) L 04/02/17 03:28 Triglycerides 94 mg/dL (0-150) 03/26/17 07:18 Cholesterol 82 mg/dL (0-200) 03/26/17 07:18 LDL Cholesterol, Calc 15 mg/dL (0-100) 03/26/17 07:18 HDL Cholesterol 48 mg/dL (40-60) 03/26/17 07:18 Cholesterol/HDL Ratio 1.7 (0.0-5.0) 03/26/17 07:18 Amylase 135 Units/L (25-115) H 03/25/17 16:30 Lipase 510 Units/L (73-393) H 03/25/17 16:30 Specimen Type Catherized urine 03/25/17 23:12 Urine Color Yellow (YELLOW) 03/25/17 23:12 Urine Appearance Clear (CLEAR) 03/25/17 23:12 Urine pH 6.5 (5.0 - 8.0) 03/25/17 23:12 Ur Specific [place] 1.010 (1.000-1.030) 03/25/17 23:12 Urine Protein 3+ (NEGATIVE) 03/25/17 23:12 Urine Glucose (UA) Negative (NEGATIVE) 03/25/17 23:12 Urine Ketones Negative (NEGATIVE) 03/25/17 23:12 Urine Occult Blood Negative (NEGATIVE) 03/25/17 23:12 Urine Nitrite Negative (NEGATIVE) 03/25/17 23:12 Urine Bilirubin Negative (NEGATIVE) 03/25/17 23:12 Urine Urobilinogen Normal (NORMAL) 03/25/17 23:12 Ur Leukocyte Esterase 1+ (NEGATIVE) 03/25/17 23:12 Urine RBC None seen /HPF (NEGATIVE) 03/25/17 23:12 Urine WBC 6-8 /HPF (NEGATIVE) 03/25/17 23:12 Ur Squamous Epith Cells Rare /HPF (NEGATIVE) 03/25/17 23:12 Urine Bacteria 1+ /HPF (NEGATIVE) 03/25/17 23:12 Ur Culture Indicated? Yes/culture set up 03/25/17 23:12 Vancomycin Trough 27.4 ug/mL (15-20) H 04/02/17 09:05 - Plan (1) Comfort measures only status Status: Acute Plan: START MORPHINE DRIP, VERSED DRIP, MONITOR FOR COMFORT. (2) Pneumonia Status: Acute Qualifiers: Pneumonia type: due to Klebsiella pneumoniae Aspiration pneumonia type: A Laterality: right Lung location: lower lobe of lung Qualified Code(s): J15.0 - Pneumonia due to Klebsiella pneumoniae (3) Acute renal failure Status: Acute Qualifiers: Acute renal failure type: A (4) Constipation by delayed colonic transit Status: Chronic (5) Abdominal pain Status: Acute Qualifiers: Abdominal location: generalized Qualified Code(s): R10.84 - Generalized abdominal pain (6) Mental status alteration Status: Acute Qualifiers: Altered mental status type: disorientation Coma depth: C Coma timing: C Qualified Code(s): R41.0 - Disorientation, unspecified (7) Enterococcus UTI Status: Acute (8) UTI (urinary tract infection) Status: Acute Qualifiers: Urinary tract infection type: acute cystitis Hematuria presence: without hematuria Indwelling urinary catheter type: I Encounter type: E Qualified Code(s): N30.00 - Acute cystitis without hematuria (9) CAD (coronary artery disease) Status: Chronic Qualifiers: Coronary Disease-Associated Artery/Lesion type: [place] artery [place] vs. transplanted heart: [place] heart Associated angina: without angina Qualified Code(s): I25.10 - Atherosclerotic heart disease of [place] coronary artery without angina pectoris (10) CHF (congestive heart failure) Status: Chronic Qualifiers: Congestive heart failure type: C Congestive heart failure chronicity: acute on chronic (11) Chronic renal failure Status: Chronic Qualifiers: Chronic kidney disease stage: stage 4 (severe) Qualified Code(s): N18.4 - Chronic kidney disease, stage 4 (severe) (12) Dementia Status: Chronic Qualifiers: Dementia type: vascular dementia Alzheimer's disease onset: A Dementia behavioral disturbance: without behavioral disturbance Qualified Code(s): F01.50 - Vascular dementia without behavioral disturbance (13) Depression Status: Chronic Qualifiers: Depression Type: major depressive disorder Major depression recurrence: recurrent Active/Remission status: currently active Major depression episode severity: moderate Psychotic features: P Trimester: T Qualified Code(s): F33.1 - Major depressive disorder, recurrent, moderate (14) Diabetes mellitus, type 2 Status: Chronic Qualifiers: Diabetes mellitus complication status: with kidney complications Diabetes mellitus complication detail: with chronic kidney disease Diabetic retinopathy severity: D Proliferative retinopathy type: P Diabetes mellitus macular edema: D 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 Laterality: L Chronic kidney disease stage: stage 4 (severe) Qualified Code(s): E11.22 - Type 2 diabetes mellitus with diabetic chronic kidney disease (15) Dysphagia as late effect of cerebrovascular accident (CVA) Status: Chronic (16) Essential hypertension Status: Chronic (17) GERD (gastroesophageal reflux disease) Status: Chronic Qualifiers: Esophagitis presence: esophagitis presence not specified Qualified Code(s) : K21.9 - Gastro-esophageal reflux disease without esophagitis (18) History of CVA (cerebrovascular accident) Status: Chronic (19) Hyperlipidemia Status: Chronic Qualifiers: Hyperlipidemia type: mixed hyperlipidemia Qualified Code(s): E78.2 - Mixed hyperlipidemia (20) Pacemaker Status: Chronic (21) S/P percutaneous endoscopic gastrostomy (PEG) tube placement Status: Acute
[2017-04-02] MEDS: VANCOMYCIN HCL 500 MG VIAL 750 MG in NS 250 ML IV 250 ML IV SCH (12:11)
[2017-04-02] MEDS ORDERED: ZOFRAN INJ 4 MG VIAL IVP PRN (15:19)
[2017-04-02] MEDS ORDERED: VERSED 50 MG in NS 50 ML IV 40 ML IV PRN (15:19)
[2017-04-02] MEDS ORDERED: PHARMACY CONSULT - DOSE _____ XX SCH (15:19)
[2017-04-02] MEDS ORDERED: MILK OF MAGNESIA PO SCH (17:00)
[2017-04-02] MEDS ORDERED: ROBITUSSIN DM PEG SCH (17:00)
[2017-04-02] MEDS ORDERED: XALATAN LEFTEYE SCH (21:00)
[2017-04-02] MEDS ORDERED: COLACE SYRUP 100 MG UDC PO SCH (21:00)
[2017-04-02] MEDS: TIMOPTIC 0.5% EYE DROPS LEFTEYE SCH (21:00)
[2017-04-02] MEDS ORDERED: COSOPT OPTH LEFTEYE SCH (21:00)
[2017-04-02] MEDS: TRUSOPT PLUS (OPHTH) LEFTEYE SCH (21:00)
[2017-04-03] MEDS: DUONEB 0.5 MG/3 MG NEB SCH ×3 (01:13→09:24)
[2017-04-03] MEDS: NS 1000 ML 1,000 ML IV SCH ×2 (05:59→06:36)
[2017-04-03] MEDS: ALPHAGAN P 0.15% OPHTH SOLN LEFTEYE SCH (05:59)
[2017-04-03] MEDS ORDERED: VANCOMYCIN HCL 500 MG VIAL 750 MG in NS 250 ML IV 250 ML IV SCH (09:00)
[2017-04-03] MEDS ORDERED: PROTONIX INJ 40 MG VIAL IVP SCH (09:00)
[2017-04-03] MEDS ORDERED: LIPITOR TAB 20 MG PEG SCH (09:00)
[2017-04-03] MEDS ORDERED: PLAVIX PEG SCH (09:00)
[2017-04-03] MEDS ORDERED: MIRALAX POWDER (1 DOSE 17GM) PO SCH (09:00)
[2017-04-03] MEDS ORDERED: CELEXA PEG SCH (09:00)
[2017-04-03] MEDS ORDERED: FORTAZ or TAZICEF INJ 1 GM in NS 50 ML IV + SPIKE MINIBAG* 50 ML IV SCH (09:00)
[2017-04-03] MEDS: ARTIFICIAL TEARS DROPS EACHEYE SCH (09:50)
[2017-04-03] MEDS: TRUSOPT PLUS (OPHTH) LEFTEYE SCH (09:51)
[2017-04-03] MEDS: TIMOPTIC 0.5% EYE DROPS LEFTEYE SCH (09:51)
[2017-04-03] MEDS ORDERED: VERSED 50 MG in NS 50 ML IV 40 ML IV PRN (10:22)
[2017-04-03 10:58] VITALS: BP 134/60
[2017-04-03] MEDS ORDERED: MORPHINE SULFATE PCA 30 MG IVP SCH (12:00)
[2017-04-04] MEDS ORDERED: PEPCID 20 MG IV PREMIX* 20 MG/50 ML BAG IV SCH (08:00)
== END 2017-04-03 11:20 | disposition expired | DRG 178 ==
LOC: ER 16:42 → OBSVTOIN 03-26 00:37 → ICU 03-26 00:37 → MED/SURG 04-02 12:00
PROVIDERS: ADMIT Obstetrics & Gynecology Obstetrics; ATTEND Internal Medicine
DX: J15.0 Pneumonia due to Klebsiella pneumoniae (principal); R41.0 Disorientation, unspecified; B95.2 Enterococcus as the cause of diseases classified elsewhere; I95.89 Other hypotension; R07.2 Precordial pain; R10.84 Generalized abdominal pain; Z66 Do not resuscitate; R94.31 Abnormal electrocardiogram [ECG] [EKG]; E78.2 Mixed hyperlipidemia; I10 Essential (primary) hypertension; N30.00 Acute cystitis without hematuria; R11.12 Projectile vomiting; E87.0 Hyperosmolality and hypernatremia; E86.0 Dehydration; R06.02 Shortness of breath; I25.10 Atherosclerotic heart disease of native coronary artery without angina pectoris; E11.65 Type 2 diabetes mellitus with hyperglycemia; K21.9 Gastro-esophageal reflux disease without esophagitis; I50.9 Heart failure, unspecified; N18.4 Chronic kidney disease, stage 4 (severe); K59.01 Slow transit constipation; F01.50 Vascular dementia, unspecified severity, without behavioral disturbance, psychotic disturbance, mood disturbance, and anxiety; F33.1 Major depressive disorder, recurrent, moderate; E11.22 Type 2 diabetes mellitus with diabetic chronic kidney disease; R13.19 Other dysphagia; Z93.1 Gastrostomy status; Z86.73 Personal history of transient ischemic attack (TIA), and cerebral infarction without residual deficits; R79.1 Abnormal coagulation profile; J90 Pleural effusion, not elsewhere classified
CPT/HCPCS: 36415; 36591; 36600; 70450; 71010; 71250; 74176; 76770; 80048; 80053; 80061; 80202; 81001; 82150; 82550; 82553; 82565; 82803; 83605; 83690; 83735; 83880; 84484; 85025; 85610; 85730; 86140; 87040; 87070; 87077; 87086; 87088; 87186; 87205; 93005; 93041; 94640; 96365; 96367; 96374; 96375; 99284; 99285; A4222; B5200; C9113; P9047; S0028; J0696; J0713; J1815; J2250; J2270; J2405; J3370; J7620